=== PATIENT | male | born 1945 | race Caucasian/White ===

== ENCOUNTER 2019-09-01 07:01 | Outpatient (CLI) | payer MEDICARE, SELFPAY ==
[2019-09-01 07:20] LABS: Basophils Absolute Auto 0.05 K/mm3 (0.00-0.10); Basophils Percent Auto 0.8 % (0.0-1.0); Eosinophils Absolute Auto 0.49 K/mm3 (0.02-0.50); Eosinophils Percent Auto 8.2 % (1.0-6.0); Immature Granulocyte Absolute 0.01 K/mm3 (0.00-0.00); Immature Granulocyte Percent A 0.2 % (0.0-0.0); Lymphocytes Absolute Auto 2.38 K/mm3 (1.10-4.50); Lymphocytes Percent Auto 39.7 % (18.0-42.0); Mean Corpuscular HGB Conc 33.3 g/dL (32.0-36.0); Mean Corpuscular Hemoglobin 30.7 pg (27.0-31.0); Mean Platelet Volume 9.8 fl (8.7-11.0); Monocytes Absolute Auto 0.55 K/mm3 (0.10-0.90); Monocytes Percent Auto 9.2 % (2.0-11.0); Neutrophils Absolute Auto 2.5 K/mm3 (1.7-7.2); Neutrophils Percent Auto 41.9 % (50.0-70.0); Platelet Count Result 177 K/mm3 (150-420); Red Blood Count 4.24 M/mm3 (4.70-6.10); Red Cell Distribution Width 12.1 % (11.6-14.4)
[2019-09-01 07:34] LABS: Hemoglobin A1C 6.6 % (<5.7)
[2019-09-01 09:04] LABS: Alanine Aminotransferase 26 U/L (16-63); Alkaline Phosphatase 50 U/L (46-116); Anion Gap 11.4 mmol/L (7-16); Aspartate Amino Transferase 22 U/L (15-37); Bilirubin,Total 0.6 mg/dL (0.00-1.00); Blood Urea Nitrogen 27 mg/dL (7-18); Calcium 8.6 mg/dL (8.5-10.1); Carbon Dioxide 29 mmol/L (21-32); Chloride 107 mmol/L (98-108); Cholesterol 180 mg/dL (0-200); Estimated Glomerular Filt Rate > 60; Glucose 110 mg/dL (70-99); HDL Direct 53 mg/dL (40-60); LDL Cholesterol Calculated 103 mg/dL (<130); Osmolality Calculated 302 mOsm/kg (285-295); Potassium 4.4 mmol/L (3.5-5.1); Sodium 143 mmol/L (136-145); Total Protein 6.7 g/dL (6.4-8.2); Triglycerides 119 mg/dL (0-150)
== END 2019-09-01 07:02 | disposition home or self-care (01) ==
PROVIDERS: PCP Family Medicine; Visit Provider Family Medicine
DX: E78.2 Mixed hyperlipidemia (principal); I10 Essential (primary) hypertension; R73.03 Prediabetes
CPT/HCPCS: 36415; 80053; 80061; 83036; 85025

== ENCOUNTER 2020-03-06 06:56 | Outpatient (CLI) | payer MEDICARE, SELFPAY ==
[2020-03-06 07:54] LABS: Hemoglobin A1C 6.7 % (<5.7)
[2020-03-06 09:52] LABS: Alanine Aminotransferase 23 U/L (16-63); Albumin Level 3.6 g/dL (3.4-5.0); Alkaline Phosphatase 62 U/L (46-116); Anion Gap 7 mmol/L (8-16); Aspartate Amino Transferase 23 U/L (15-37); Bilirubin,Total 0.7 mg/dL (0.00-1.00); Blood Urea Nitrogen 20 mg/dL (7-18); Carbon Dioxide 29 mmol/L (21-32); Chloride 103 mmol/L (98-108); Cholesterol 175 mg/dL (0-200); Estimated Glomerular Filt Rate > 60; Glucose 104 mg/dL (70-99); HDL Direct 49 mg/dL (40-60); LDL Cholesterol Calculated 107 mg/dL (<130); Osmolality Calculated 290 mOsm/kg (285-295); Potassium 4.3 mmol/L (3.5-5.1); Sodium 139 mmol/L (136-145); Total Protein 6.9 g/dL (6.4-8.2); Triglycerides 97 mg/dL (0-150)
== END 2020-03-06 06:57 | disposition home or self-care (01) ==
LOC: CHSLAB 06:58
PROVIDERS: PCP Internal Medicine; Visit Provider Internal Medicine
DX: E78.5 Hyperlipidemia, unspecified (principal); I10 Essential (primary) hypertension; R73.03 Prediabetes
CPT/HCPCS: 36415; 80053; 80061; 83036

== ENCOUNTER 2020-09-16 07:16 | Outpatient (CLI) | payer MEDICARE, SELFPAY ==
[2020-09-16 07:35] LABS: Basophils Absolute Auto 0.06 K/mm3 (0.00-0.10); Basophils Percent Auto 0.8 % (0.0-1.0); Eosinophils Absolute Auto 0.38 K/mm3 (0.02-0.50); Eosinophils Percent Auto 5.3 % (1.0-6.0); Hematocrit 37.6 % (37.0-46.0); Hemoglobin 12.4 g/dL (12.4-15.3); Immature Granulocyte Absolute 0.03 K/mm3 (0.00-0.00); Immature Granulocyte Percent A 0.4 % (0.0-0.0); Lymphocytes Absolute Auto 2.87 K/mm3 (1.10-4.50); Lymphocytes Percent Auto 40.2 % (18.0-42.0); Mean Platelet Volume 9.9 fl (8.7-11.0); Monocytes Absolute Auto 0.65 K/mm3 (0.10-0.90); Monocytes Percent Auto 9.1 % (2.0-11.0); Neutrophils Absolute Auto 3.2 K/mm3 (1.7-7.2); Neutrophils Percent Auto 44.2 % (50.0-70.0); Platelet Count Result 208 K/mm3 (150-420); Red Cell Distribution Width 11.9 % (11.6-14.4); White Blood Count 7.1 K/mm3 (4.8-10.8)
[2020-09-16 07:42] LABS: Appearance Urine Clear (Clear); Bilirubin Urine Negative (Negative); Color Urine Yellow (Yellow); Glucose Urine UA Negative (Negative); Ketones Urine Negative (Negative); Leukocyte Esterase Ur 1+ (Negative); Nitrate Urine Negative (Negative); Protein Urine Negative (Negative); Specific Grav Ur >= 1.030 (1.010-1.020); Urobilinogen Urine 0.2 mg/dL (0.2-1.0)
[2020-09-16 07:47] LABS: Add Urine Microscopic? YES; Blood Urine Trace (Negative); RBC Urine 0-2 /hpf (0-2); WBC Urine 0-3 /hpf (0-3)
[2020-09-16 07:48] LABS: Bacteria Urine Trace /hpf
[2020-09-16 08:37] LABS: Alanine Aminotransferase 26 U/L (16-63); Albumin Level 3.8 g/dL (3.4-5.0); Alkaline Phosphatase 62 U/L (46-116); Anion Gap 7 mmol/L (8-16); Aspartate Amino Transferase 18 U/L (15-37); Bilirubin,Total 0.4 mg/dL (0.00-1.00); Blood Urea Nitrogen 26 mg/dL (7-18); Carbon Dioxide 30 mmol/L (21-32); Chloride 103 mmol/L (98-108); Cholesterol 159 mg/dL (0-200); Estimated Glomerular Filt Rate 57; Glucose 105 mg/dL (70-99); HDL Direct 47 mg/dL (40-60); LDL Cholesterol Calculated 94 mg/dL (<130); Osmolality Calculated 294 mOsm/kg (285-295); Potassium 4.3 mmol/L (3.5-5.1); Prostate Specific Antigen 9.1 ng/mL (< OR = 4.0); Sodium 140 mmol/L (136-145); Thyroid Stimulating Hormone 3.18 uIU/mL (0.36-3.74); Total Protein 6.8 g/dL (6.4-8.2); Triglycerides 92 mg/dL (0-150)
== END 2020-09-16 07:17 | disposition home or self-care (01) ==
LOC: CHSLAB 07:18
PROVIDERS: PCP Internal Medicine; Visit Provider Internal Medicine
DX: E78.5 Hyperlipidemia, unspecified (principal); I10 Essential (primary) hypertension; Z00.00 Encounter for general adult medical examination without abnormal findings; Z12.5 Encounter for screening for malignant neoplasm of prostate
CPT/HCPCS: 36415; 80053; 80061; 81001; 84153; 84443; 85025; G0103

== ENCOUNTER 2020-12-02 17:01 | Emergency (ER) | payer MEDICARE, OTHER, SELFPAY ==
--- NOTE | 2020-12-02 17:46 | ED.MALEGU ---
HPI - Male Genitourinary General Chief complaint: Urogenital-Male Stated complaint: Can not urinate Time Seen by Provider: 12/02/20 17:46 Source: patient Mode of arrival: ambulatory Limitations: no limitations History of Present Illness HPI Narrative: 75-year-old man comes in today complaining of difficulty urinating. Patient states that on the he underwent your cystoscopy for bladder stone and a prostate biopsy. He states he got his catheter taken out on Friday the and for a few days he had small stream and dribbling but he has only had a few drops with each attempt to urinate for the last day or 2. States he feels like his bladder is full, has low abdominal pain. He states he has had a small amount of blood at the initiation of urinating several times since the urinary catheter was removed but no persistent blood. He denies nausea, vomiting, fever, night sweats, testicular pain or swelling, chills and dysuria. Onset (ago): day(s) (2) Duration: constant Location: penis and abdomen Severity: moderate Quality: sharp Relieving factors: urination Exacerbating factors: palpation Context: other ( recent procedure) Associated symptoms: Reports blood in urine Related Data Home Medications Medication Instructions Recorded Confirmed lisinopril-hydrochlorothiazide 1 tablet PO DAILY 12/02/20 12/02/20 Allergies Allergy/AdvReac Type Severity Reaction Status Date / Time Penicillins Allergy Severe Swelling Verified 12/02/20 18:30 Review of Systems Review of Systems: All systems reviewed & are unremarkable except as noted in HPI and below Constitutional: Constitutional: Denies chills and Denies fever(s) Cardiovascular: Cardiovascular: Denies chest pain and Denies radiating jaw, neck or arm pain Respiratory: Respiratory: Denies cough and Denies dyspnea Gastrointestinal: Gastrointestinal: Reports abdominal pain, Denies nausea and Denies vomiting Genitourinary: Genitourinary: Reports hematuria, Reports oliguria, Denies dysuria and Reports urinary frequency Musculoskeletal: Musculoskeletal: Denies back pain, Denies arthralgias and Denies joint swelling Integumentary/Breasts: Skin/Breast: Denies pruritus, Denies erythema and Denies rash Neurologic: Denies vertigo, Denies dizziness and Denies syncope Hematologic/Lymphatic: Hematologic/Lymphatic: Denies easy bleeding and Denies easy bruising Allergic/Immunologic: Allergic/Immunologic: Denies lip swelling and Denies tongue swelling PMFSH Past Medical History Medical History (Updated 12/02/20 @ 18:30 by Nabeel Henao MD) Bladder stone Elevated PSA Surgical History Surgical History (Updated 12/02/20 @ 18:25 by Nabeel Henao MD) H/O cystoscopy Social History Social History (Updated 12/02/20 @ 18:25 by Nabeel Henao MD) Smoking status: Never smoker Substance use: never Living arrangements: with family Gender identity (if verbalized by the patient): Male Exam Const: General: alert Orientation/consciousness: patient oriented x3 Limitations: no limitations Other: mild acute distress Eyes: Conjunctivae: conjunctivae normal Pupils: Equal, round and reactive pupils present EOM: EOMs intact bilaterally Resp: Effort & Inspection: normal respiratory effort and not labored Auscultation: clear to auscultation bilaterally, no rales, no rhonchi and no wheezes Cardio: Rate: regular rate Rhythm: regular rhythm Heart sounds: no murmurs GI: GI Palp: Yes Soft to palpation, Yes Tenderness to palpation present (GI) ( mild suprapubic tenderness is with a distended bladder.) and No Guarding due to palpation present (GI) Auscultation: normal bowel sounds : Male General Exam: Yes normal external exam Other: No scrotal swelling or tenderness. No inguinal masses. Skin: General skin exam: normal color, no jaundice and no pallor Rashes: no rashes Neuro: General: patient oriented x3, moves all extremities and no focal motor deficits
[2020-12-02 18:04] LABS: Basophils Absolute Auto 0.04 K/mm3 (0.00-0.10); Basophils Percent Auto 0.4 % (0.0-1.0); Eosinophils Absolute Auto 0.15 K/mm3 (0.02-0.50); Eosinophils Percent Auto 1.6 % (1.0-6.0); Hematocrit 35.3 % (37.0-46.0); Hemoglobin 11.7 g/dL (12.4-15.3); Immature Granulocyte Absolute 0.05 K/mm3 (0.00-0.00); Immature Granulocyte Percent A 0.5 % (0.0-0.0); Lymphocytes Absolute Auto 1.84 K/mm3 (1.10-4.50); Lymphocytes Percent Auto 19.8 % (18.0-42.0); Mean Corpuscular HGB Conc 33.1 g/dL (32.0-36.0); Mean Corpuscular Hemoglobin 30.4 pg (27.0-31.0); Mean Corpuscular Volume 91.7 fL (78.0-102.0); Mean Platelet Volume 9.5 fl (8.7-11.0); Monocytes Absolute Auto 0.83 K/mm3 (0.10-0.90); Neutrophils Absolute Auto 6.4 K/mm3 (1.7-7.2); Neutrophils Percent Auto 68.7 % (50.0-70.0); Platelet Count Result 248 K/mm3 (150-420); Red Blood Count 3.85 M/mm3 (4.70-6.10); Red Cell Distribution Width 11.9 % (11.6-14.4); White Blood Count 9.3 K/mm3 (4.8-10.8)
[2020-12-02 18:06] LABS: Add Urine Microscopic? YES; Appearance Urine Cloudy (Clear); Bilirubin Urine Negative (Negative); Blood Urine 3+ (Negative); Color Urine Yellow (Yellow); Glucose Urine UA Negative (Negative); Ketones Urine Negative (Negative); Leukocyte Esterase Ur 1+ (Negative); Nitrate Urine Negative (Negative); Protein Urine 2+ (Negative); Urobilinogen Urine 0.2 mg/dL (0.2-1.0); pH Urine 6.5 (5.0-8.0)
[2020-12-02 18:16] LABS: Bacteria Urine Trace /hpf; RBC Urine >75 /hpf (0-2); Squamous Epithelial Cell Urine Rare /hpf (Few); WBC Urine 21-30 /hpf (0-3)
[2020-12-02 18:18] LABS: Alanine Aminotransferase 23 U/L (16-63); Albumin Level 3.5 g/dL (3.4-5.0); Alkaline Phosphatase 62 U/L (46-116); Anion Gap 7 mmol/L (8-16); Aspartate Amino Transferase 17 U/L (15-37); Bilirubin,Total 0.7 mg/dL (0.00-1.00); Blood Urea Nitrogen 24 mg/dL (7-18); Calcium 9.4 mg/dL (8.5-10.1); Carbon Dioxide 29 mmol/L (21-32); Chloride 97 mmol/L (98-108); Estimated Glomerular Filt Rate 53; Glucose 117 mg/dL (70-99); Osmolality Calculated 281 mOsm/kg (285-295); Potassium 3.9 mmol/L (3.5-5.1); Sodium 133 mmol/L (136-145); Total Protein 7.1 g/dL (6.4-8.2)
[2020-12-02 18:58] VITALS: BP 154/72; PULSE 60; RESP 20; TEMP 36.4; O2SAT 96
[2020-12-02 19:19] VITALS: BP 144/71; PULSE 58; RESP 20; TEMP 36.7; O2SAT 96
== END 2020-12-02 19:22 | disposition home or self-care (01) ==
PROVIDERS: Emergency Provider Emergency Medicine; PCP Internal Medicine
DX: R33.9 Retention of urine, unspecified (principal)
CPT/HCPCS: 36415; 80053; 81001; 85025; 87086; 99283

== ENCOUNTER 2021-05-24 07:17 | Outpatient (CLI) | payer MEDICARE, SELFPAY ==
[2021-05-24 07:32] LABS: Basophils Absolute Auto 0.06 K/mm3 (0.00-0.10); Basophils Percent Auto 0.8 % (0.0-1.0); Eosinophils Absolute Auto 0.32 K/mm3 (0.02-0.50); Eosinophils Percent Auto 4.3 % (1.0-6.0); Hematocrit 40.3 % (37.0-46.0); Hemoglobin 13.1 g/dL (12.4-15.3); Immature Granulocyte Absolute 0.02 K/mm3 (0.00-0.00); Immature Granulocyte Percent A 0.3 % (0.0-0.0); Lymphocytes Absolute Auto 3.01 K/mm3 (1.10-4.50); Lymphocytes Percent Auto 40.8 % (18.0-42.0); Mean Corpuscular HGB Conc 32.5 g/dL (32.0-36.0); Mean Corpuscular Hemoglobin 30.6 pg (27.0-31.0); Mean Corpuscular Volume 94.2 fL (78.0-102.0); Mean Platelet Volume 9.6 fl (8.7-11.0); Monocytes Absolute Auto 0.68 K/mm3 (0.10-0.90); Monocytes Percent Auto 9.2 % (2.0-11.0); Neutrophils Absolute Auto 3.3 K/mm3 (1.7-7.2); Neutrophils Percent Auto 44.6 % (50.0-70.0); Platelet Count Result 196 K/mm3 (150-420); Red Blood Count 4.28 M/mm3 (4.70-6.10); Red Cell Distribution Width 11.9 % (11.6-14.4); White Blood Count 7.4 K/mm3 (4.8-10.8)
[2021-05-24 07:43] LABS: Hemoglobin A1C 6.3 % (<5.7)
[2021-05-24 09:04] LABS: Alanine Aminotransferase 29 U/L (16-63); Albumin Level 3.7 g/dL (3.4-5.0); Alkaline Phosphatase 63 U/L (46-116); Anion Gap 6 mmol/L (8-16); Aspartate Amino Transferase 23 U/L (15-37); Bilirubin,Total 0.6 mg/dL (0.00-1.00); Blood Urea Nitrogen 27 mg/dL (7-18); Calcium 9.3 mg/dL (8.5-10.1); Carbon Dioxide 30 mmol/L (21-32); Chloride 104 mmol/L (98-108); Cholesterol 180 mg/dL (0-200); Estimated Glomerular Filt Rate 60; Glucose 111 mg/dL (70-99); HDL Direct 55 mg/dL (40-60); LDL Cholesterol Calculated 105 mg/dL (<130); Osmolality Calculated 296 mOsm/kg (285-295); Potassium 4.3 mmol/L (3.5-5.1); Sodium 140 mmol/L (136-145); Total Protein 6.7 g/dL (6.4-8.2); Triglycerides 98 mg/dL (0-150)
== END 2021-05-24 07:18 | disposition home or self-care (01) ==
LOC: CHSLAB 07:24
PROVIDERS: PCP Internal Medicine; Visit Provider Internal Medicine
DX: E78.5 Hyperlipidemia, unspecified (principal); I10 Essential (primary) hypertension; R73.03 Prediabetes
CPT/HCPCS: 36415; 80053; 80061; 83036; 85025

== ENCOUNTER 2021-06-04 13:20 | Outpatient (CLI) | payer MEDICARE, SELFPAY ==
--- NOTE | ~2021-06-04 | US_ITS ---
EXAMINATION: US carotid duplex BI EXAM DATE: 06/04/2021 13:43 INDICATION: Carotid bruits TECHNIQUE: Grayscale, color and pulsed Doppler images of the cervical carotid arteries were obtained . The degree of vessel stenosis is placed in one of the following categories: normal, <50% stenosis, 50-69% stenosis, >=70% stenosis but less than near-occlusion, near-occlusion, or occlusion. Note that percent stenosis relative to normal distal artery lumen diameter is indirectly measured from velocit y measurements as described by Huy, et al. Radiology 2003; 229:340-346. There is no prior study fo r comparison. FINDINGS: RIGHT SIDE: Right common carotid artery peak systolic velocity (PSV in cm/s): 102 Right bulb/internal carotid artery peak systolic velocity (PSV in cm/s): 107 Right internal carotid artery end diastolic velocity (EDV in cm/s): 31 Right ICA/CCA peak systolic ratio: 1.1 Right external carotid artery peak systolic velocity (PSV in cm/s): 91 Right vertebral artery antegrade flow: yes There is no focal plaque identified. LEFT SIDE: Left common carotid artery peak systolic velocity (PSV in cm/s): 103 Left bulb/internal carotid artery peak systolic velocity (PSV in cm/s): 81 Left internal carotid artery end diastolic velocity (EDV in cm/s): 23 Left ICA/CCA peak systolic ratio: 0.8 Left external carotid artery peak systolic velocity (PSV in cm/s): 76 Left vertebral artery antegrade flow: yes There is minimal carotid bulb plaque. Velocity and Doppler waveforms in the common and internal carotid arteries is normal. IMPRESSION: 1. Normal right internal carotid artery. 2. Less than 50% stenosis left internal carotid artery. Reviewed, dictated and finalized at location A. RDS MANAGEMENT DIRECTOR
--- NOTE | ~2021-06-04 | XR_ITS ---
EXAMINATION: XR chest 2V EXAM DATE: 06/04/2021 13:47 INDICATION: Dyspnea with exertion several times months . TECHNIQUE: Frontal and lateral projections of the chest obtained and reviewed. There is no prior savanna dy for comparison. FINDINGS: On lateral projection there is increased approximately 2 cm region of density anterior mid lung zone, possible left upper lobe anterior segmental nodule or mass. There is small right lung gra nuloma. No confluent consolidation, pneumothorax or pleural effusion suspected. Cardiomediastinal diya houette is normal. Mild to moderate thoracic spondylosis. IMPRESSION: Indeterminate left perihilar density; recommend chest CT without contrast for further ev aluation. I called this finding, recommendation with Sammie working with Dr. Jose De Jesus Covarrubias MD, said she look f or this report. Reviewed, dictated and finalized at location A. RAL TELLER IMPRESSION: Indeterminate left perihilar density; recommend chest CT without c ontrast for further evaluation. I called this finding, recommendation with Sammie working with Dr. Jose De Jesus gifford MD, said she look for this report.
== END 2021-06-04 13:21 | disposition home or self-care (01) ==
LOC: CHSIMG 13:22
PROVIDERS: PCP Internal Medicine; Visit Provider Internal Medicine
DX: R06.00 Dyspnea, unspecified (principal); R09.89 Other specified symptoms and signs involving the circulatory and respiratory systems
CPT/HCPCS: 71046; 93880

== ENCOUNTER 2021-06-05 09:11 | Outpatient (CLI) | payer MEDICARE, SELFPAY ==
--- NOTE | ~2021-06-05 | CT_ITS ---
EXAMINATION:CT diagnostic chest w con DATE: 06/05/2021 11:40 INDICATION: Abnormal chest radiograph. Shortness of breath with exertion. TECHNIQUE: Computed tomography (CT) of the chest was performed with 75 mL Omnipaque 350 intravenous c ontrast. Automated exposure control and iterative reconstruction technique were employed. The dose-le ngth product (DLP) was 212.05 mGy-cm. COMPARISON: Chest 2 views 06/04/2021, chest CT 11/12/2013 FINDINGS: There is mild scarring at the lung apices. There is a 7 mm nodule in right lower lobe, stab le from 11/12/2013. No pleural effusion. The heart size is normal. There are coronary artery calcificat ions. No pericardial effusion. There is severe cervical and thoracic spondylosis. There is thoracic k yphosis and mild chronic anterior wedging of multiple thoracic vertebral bodies. IMPRESSION: 1. No abnormal correlate for the chest radiograph finding. 2. Stable mild scarring at the lung apices. Reviewed, dictated and finalized at location B. M SHOVELMAN
== END 2021-06-05 09:12 | disposition home or self-care (01) ==
PROVIDERS: PCP Internal Medicine; Visit Provider Internal Medicine
DX: R06.00 Dyspnea, unspecified (principal); R09.89 Other specified symptoms and signs involving the circulatory and respiratory systems; R91.8 Other nonspecific abnormal finding of lung field
CPT/HCPCS: 71260; 94060; 94726; 94729; Q9967

== ENCOUNTER 2024-07-05 11:46 | Inpatient (IN) | payer MEDICARE, SELFPAY ==
[2024-07-05] VITALS (27 sets, daily range): BP systolic 106–144; BP diastolic 54–90; PULSE 70–119; RESP 14–31; TEMP 36–36.7; O2SAT 83–99; BMI 24.2
--- NOTE | ~2024-07-05 | CT_ITS ---
EXAMINATION: CTA chest PE protocol DATE: 07/05/2024 13:06 INDICATION: Cough, dyspnea on exertion, less appetite. COPD. TECHNIQUE: Computed tomography (CT) pulmonary angiogram of the chest was performed with 100 mL Omnipa que-350 intravenous contrast. Additional 3D reconstructions utilizing coronal maximum intensity proje ction (MIP) were performed. Automated exposure control and iterative reconstruction technique were em ployed. The dose-length product was 231.77 mGy-cm. COMPARISON: 06/05/21 FINDINGS: No pulmonary embolism. Mild emphysema. Scattered tree-in-bud opacities in both lungs consistent with bronchiolitis with endobronchial spread of disease. Calcified right upper lobe nodule consistent wit h old granulomatous disease. Unchanged 9 x 5 mm right lower lobe nodule with a couple punctate qa intern al calcification is also likely sequela of old granulomatous disease. No pulmonary edema, pleural eff usion or pneumothorax. Heart size is normal. Atherosclerotic coronary artery calcifications. No peric ardial effusion. Thoracic aorta is normal in caliber with no dissection. No pathologically enlarged t horacic lymphadenopathy. Visualized upper abdomen is unremarkable. Severe thoracic spondylosis. IMPRESSION: 1. No pulmonary embolism. 2. Mild emphysema with scattered subtle tree-in-bud opacities which could be due to acute infectious bronchiolitis or more chronic respiratory bronchiolitis interstitial lung disease, new since prior [facility]. Reviewed, dictated and finalized at location B. ICAL SCIENTIST IMPRESSION: 1. No pulmonary embolism. 2. Mild emphysema with scattered subtle tree-in-bud opacities which could be du e to acute infectious bronchiolitis or more chronic respiratory bronchiolitis i nterstitial lung disease, new since prior study.
--- NOTE | 2024-07-05 11:48 | ECG_ITS ---
Test Date: 2024-07-05 12:08:21 Measurements Intervals [place] Rate: 100 P: 71 IA: 166 QRS: 78 QRSD: 86 T: 78 QT: 327 QTc: 422 Interpretive Statements SINUS TACHYCARDIA ABNORMAL RHYTHM ECG No previous ECG available for comparison Electronically Signed On 07-06-2024 15:21:29 EXCAVATOR OPERATOR by Mercy Gaston M.D.
--- NOTE | 2024-07-05 11:51 | ED_ITS ---
HPI - General Adult General Chief complaint: Shortness of Breath/Dyspnea Stated complaint: shortness of breathe Time Seen by Provider: 07/05/24 11:48 History of Present Illness HPI narrative: Deonte is an 78M with a PMH of COPD/emphysema that was brought to the ED with worsening chest dyspnea, cough and fatigue. pulse ox dropped to 81% at home. No CP or syncope. He was exposed to covid several days prior. Related Data Home Medications ?Medication ?Instructions ?Recorded ?Confirmed ?Last Taken ?Type lisinopril 20 1 tablet PO DAILY 12/02/20 07/05/24 12/02/20 History mg-hydrochlorothiazide 25 mg tablet fluticasone propionate 115 2 puff inhalation Q12H 07/05/24 07/05/24 Unknown History mcg-salmeterol 21 mcg/actuation HFA inhaler (Advair HFA) latanoprost 0.005 % eye drops 1 drp EACH EYE QPM 07/05/24 07/05/24 Unknown History pravastatin 40 mg tablet 40 mg PO QHS 07/05/24 07/05/24 Unknown History Allergies Allergy/AdvReac Type Severity Reaction Status Date / Time Penicillins Allergy Severe Swelling Verified 07/05/24 11:49 Review of Systems 2 Review of Systems: All systems reviewed & are unremarkable except as noted in HPI and below PMFSH Past Medical History Medical History (Updated 07/05/24 @ 13:40 by Nigel Ponce DO) Bladder stone Elevated PSA Surgical History Surgical History (Updated 12/02/20 @ 18:25 by Nabeel HenaoMD) H/O cystoscopy Social History Social History (Updated 12/02/20 @ 18:25 by Nabeel HenaoMD) Smoking status: Unknown if ever smoked Second hand tobacco smoke exposure: No Alcohol intake: never Substance use: never Substance use type: does not use Do You Feel Safe in your Home?: Yes Lack of Transportation: No Lack of Food: Never True Current Housing: I Have Housing Concerned About Future Housing: No Difficulty Paying Gas/Electric Bills: No Difficulty Paying for Meds: No Currently Unemployed: No Education: High School Diploma/GED Difficulty w/ Childcare or Family Care: No Living arrangements: with family Gender identity (if verbalized by the patient): Male Spiritual care concerns: No Exam 2 Const: General: cooperative, healthy appearing, comfortable, no acute distress, well developed, alert, awake and Physically active O rientation/consciousness: oriented to person, oriented to place and oriented to time HENMT: Head: normal to inspection, normocephalic and atraumatic Ears: h earing grossly normal bilaterally and external ears normal Face/Nose/Sinus: N ormal external nose present Eyes: General: appearance normal, both eyes and all related structures P eriorbital: periorbital findings normal Sclera: sclerae normal Pupils: E qual, round and reactive pupils present Neck: Neck: normal visual inspection Chest: Chest palpation & inspection: normal inspection of the chest Resp: Effort & Inspection: normal respiratory effort, able to speak in complete sentences and no respiratory distress Other: Diffuse wheezing with poor air flow. Crackles in the bases bilaterally, R>L Cardio: Jugular venous distension: no JVD Rate: regular rate Rhythm: r egular rhythm GI: Inspection: normal to inspection GI Palp: Yes Soft to palpation A uscultation: normal bowel sounds Skin: General skin exam: normal color and no rashes or lesions noted Neuro: General: oriented to person, oriented to place and oriented to time Cranial nerves: Yes Equal, round and reactive pupils present Extrem: General: normal to inspection Course Course Emergency Course: Ordered labs, EKG, CTA and duoneb as well as steroids and abx EKG showed sinus tachycardia with a rate of 100, normal axis and no ST elevation/depression EXAMINATION: CTA chest PE protocol DATE: 07/05/2024 13:06 INDICATION: Cough, dyspnea on exertion, less appetite. COPD. TECHNIQUE: Computed tomography (CT) pulmonary angiogram of the chest was performed with 100 mL Omnipaque-350 intravenous contrast. Additional 3D reconstructions utilizing coronal maximum intensity projection (MIP) were performed. Automated exposure control and iterative reconstruction technique were employed. The dose-length product was 231.77 mGy-cm. COMPARISON: 06/05/21 FINDINGS: No pulmonary embolism. Mild emphysema. Scattered tree-in-bud opacities in both lungs consistent with bronchiolitis with endobronchial spread of disease. Calcified right upper lobe nodule consistent with old granulomatous disease. Unchanged 9 x 5 mm right lower lobe nodule with a couple punctate internal calcification is also likely sequela of old granulomatous disease. No pulmonary edema, pleural effusion or pneumothorax. Heart size is normal. Atherosclerotic coronary artery calcifications. No pericardial effusion. Thoracic aorta is normal in caliber with no dissection. No pathologically enlarged thoracic lymphadenopathy. Visualized upper abdomen is unremarkable. Severe thoracic spondylosis. IMPRESSION: 1. No pulmonary embolism. 2. Mild emphysema with scattered subtle tree-in-bud opacities which could be due to acute infectious bronchiolitis or more chronic respiratory bronchiolitis interstitial lung disease, new since prior study. I spoke with the hospitalist Natalee, who accepted the patient for admission. Vital Signs Vital signs: Vital Signs Pulse Rate 119 H 07/05/24 11:45 Pulse Oximetry 90 07/05/24 11:45 Oxygen Delivery Room Air 07/05/24 11:45 Temperature 97.8 F 07/05/24 15:02 Pulse Rate 107 H 07/05/24 15:07 Respiratory Rate 14 07/05/24 15:07 Blood Pressure 144/75 H 07/05/24 15:02 Pulse Oximetry 91 07/05/24 15:07 Oxygen Delivery Nasal Cannula 07/05/24 15:07 Oxygen Flow Rate 2 07/05/24 15:07 Medical Decision Making Vital Signs Vital Signs: Vital Signs Pulse Rate 119 H 07/05/24 11:45 Pulse Oximetry 90 07/05/24 11:45 Oxygen Delivery Room Air 07/05/24 11:45 Temperature 97.8 F 07/05/24 15:02 Pulse Rate 107 H 07/05/24 15:07 Respiratory Rate 14 07/05/24 15:07 Blood Pressure 144/75 H 07/05/24 15:02 Pulse Oximetry 91 07/05/24 15:07 Oxygen Delivery Nasal Cannula 07/05/24 15:07 Oxygen Flow Rate 2 07/05/24 15:07 Lab Data 07/05/24 12:09 07/05/24 12:09 Labs: Lab Results 07/05/24 07/05/24 Range/Units 11:50 12:09 WBC 12.5 H (4.8-10.8) K/mm3 RBC 4.01 L (4.70-6.10) M/mm3 Hgb 12.4 (12.4-15.3) g/dL Hct 37.1 (37.0-46.0) % MCV 92.5 (78.0-102.0) fL MCH 30.9 (27.0-31.0) pg MCHC 33.4 (32-36) g/dL RDW 11.9 (11.6-14.4) % Plt Count 200 (150-420) K/mm3 MPV 9.7 (8.7-11.0) fl Immature Gran % (Auto) 0.6 H (0.0-0.0) % Neut % (Auto) 80.9 H (50.0-70.0) % Lymph % (Auto) 10.7 L (18.0-42.0) % [place] % (Auto) 7.3 (2.0-11.0) % Eos % (Auto) 0.3 L (1.0-6.0) % Baso % (Auto) 0.2 (0.0-1.0) % Lymph # (Auto) 1.34 (1.10-4.50) K/mm3 [place] # (Auto) 0.91 H (0.10-0.90) K/mm3 Eos # (Auto) 0.04 (0.02-0.50) K/mm3 Baso # (Auto) 0.02 (0.00-0.10) K/mm3 Abs Immat Gran (auto) 0.07 H (0.00-0.00) K/mm3 Absolute Neuts (auto) 10.12 H (1.70-7.20) K/mm3 Absolute Nucleated RBC 0.00 (0.00-0.00) K/mm3 Nucleated RBC % 0.0 (0-0.0) % PT 10.9 (9.50-12.1) Seconds INR 1.0 Sodium 139 (136-145) mmol/L Potassium 4.4 (3.5-5.1) mmol/L Chloride 100 (98-108) mmol/L Carbon Dioxide 29 (21-32) mmol/L Anion Gap 10 (4-12) mmol/L BUN 39 H (7-18) mg/dL Creatinine 1.38 H (0.70-1.30) mg/dL Estim Creat Clear Calc 35 ml/min Estimated GFR 50 L (59 - ) Glucose 140 H (70-99) mg/dL Calculated Osmolality 299 H (285-295) mOsm/kg Lactic Acid 1.0 (0.4-2.0) mmol/L Calcium 9.3 (8.5-10.1) mg/dL Total Bilirubin 0.7 (0.00-1.00) mg/dL AST 15 (15-37) U/L ALT 21 (16-63) U/L Alkaline Phosphatase 58 (46-116) U/L Troponin I 9.6 (0.00-60.4) ng/L NT-Pro-B Natriuret Pep 413 (0-450) pg/mL Total Protein 7.2 (6.4-8.2) g/dL Albumin 3.6 (3.4-5.0) g/dL Influenza A (RT-PCR) Negative (Negative) Influenza B (RT-PCR) Negative (Negative) RSV (RT-PCR) Negative (Negative) SARS-CoV-2 RNA (RT-PCR) Negative (Negative) Discharge Plan Discharge Clinical Impression: Acute and chronic respiratory failure with hypoxia Patient Disposition: Acute Care Hospital Condition: Serious
[2024-07-05] MEDS: IPRATROPIUM 0.5 MG/ALBUTEROL SULFATE 2.5 MG AMPUL.NEB 3 ML INHALATION ×2 (11:56→17:58)
[2024-07-05] MEDS: methylPREDNISolone SOD SUCC 125 MG VIAL IV PUSH (12:15)
--- NOTE | 2024-07-05 12:15 | PC.NURSE ---
Covid culture sent to lab
[2024-07-05] MEDS: levoFLOXacin 750 MG/D5W 150 ML 750 MG/150 ML BAG 100 MG IVPB (12:17)
[2024-07-05 12:26] LABS: Basophils Absolute Auto 0.02 K/mm3 (0.00-0.10); Basophils Percent Auto 0.2 % (0.0-1.0); Eosinophils Absolute Auto 0.04 K/mm3 (0.02-0.50); Eosinophils Percent Auto 0.3 % (1.0-6.0); Hematocrit 37.1 % (37.0-46.0); Hemoglobin 12.4 g/dL (12.4-15.3); Immature Granulocyte Absolute 0.07 K/mm3 (0.00-0.00); Immature Granulocyte Percent A 0.6 % (0.0-0.0); Lymphocytes Absolute Auto 1.34 K/mm3 (1.10-4.50); Lymphocytes Percent Auto 10.7 % (18.0-42.0); Mean Corpuscular HGB Conc 33.4 g/dL (32-36); Mean Corpuscular Hemoglobin 30.9 pg (27.0-31.0); Mean Corpuscular Volume 92.5 fL (78.0-102.0); Mean Platelet Volume 9.7 fl (8.7-11.0); Monocytes Absolute Auto 0.91 K/mm3 (0.10-0.90); Monocytes Percent Auto 7.3 % (2.0-11.0); Neutrophils Absolute Auto 10.12 K/mm3 (1.70-7.20); Neutrophils Percent Auto 80.9 % (50.0-70.0); Platelet Count Result 200 K/mm3 (150-420); Red Blood Count 4.01 M/mm3 (4.70-6.10); Red Cell Distribution Width 11.9 % (11.6-14.4); White Blood Count 12.5 K/mm3 (4.8-10.8)
[2024-07-05 12:38] LABS: SARS-CoV-2 RNA PCR Negative (Negative)
[2024-07-05 12:38] LABS: Prothrombin Time 10.9 Seconds (9.50-12.1)
[2024-07-05 12:39] LABS: Influenza A QL RT-PCR Negative (Negative); Influenza B QL RT-PCR Negative (Negative); RSV RNA, RT-PCR Negative (Negative)
[2024-07-05 12:42] LABS: Anion Gap 10 mmol/L (4-12); Blood Urea Nitrogen 39 mg/dL (7-18); Calcium 9.3 mg/dL (8.5-10.1); Carbon Dioxide 29 mmol/L (21-32); Chloride 100 mmol/L (98-108); Estimated CRCL calculation 35 ml/min; Estimated Glomerular Filt Rate 50; Glucose 140 mg/dL (70-99); Osmolality Calculated 299 mOsm/kg (285-295); Potassium 4.4 mmol/L (3.5-5.1); Sodium 139 mmol/L (136-145)
[2024-07-05 12:43] LABS: Alanine Aminotransferase 21 U/L (16-63); Albumin Level 3.6 g/dL (3.4-5.0); Alkaline Phosphatase 58 U/L (46-116); Aspartate Amino Transferase 15 U/L (15-37); Bilirubin,Total 0.7 mg/dL (0.00-1.00); Total Protein 7.2 g/dL (6.4-8.2)
[2024-07-05 12:49] LABS: NT Pro B Type Natriuretic Pept 413 pg/mL (0-450); Troponin I 9.6 ng/L (0.00-60.4)
[2024-07-05] MEDS: ALBUTEROL SULFATE NEB 2.5 MG/3 ML INH INHALATION (13:30)
--- NOTE | 2024-07-05 14:40 | PC.NURSE ---
Pt arrived on the floor at 1415. Pt is alert,oriented x3, ambulatory with steady gait. Wearing O2 @ 2L/NC . Pt sating at 91 %. Visiting hours policy, call system and TV control reviewed with pt. VS stable.
[2024-07-05] MEDS: AZITHROMYCIN 250 MG TABLET 500 MG PO (15:54)
[2024-07-05] MEDS: carvediloL 12.5 MG TABLET PO (20:27)
[2024-07-05] MEDS: PRAVASTATIN SODIUM 20 MG TABLET 40 MG PO (20:27)
[2024-07-05] MEDS: TAMSULOSIN HCL 0.4 MG CAPSULE PO (20:28)
[2024-07-05] MEDS: guaiFENesin 12 HR 600 MG TABCR 1200 MG PO (20:28)
[2024-07-06] VITALS (14 sets, daily range): BP systolic 115–140; BP diastolic 49–64; PULSE 70–99; RESP 16–20; TEMP 35.8–36.2; O2SAT 90–99
[2024-07-06] MEDS: IPRATROPIUM 0.5 MG/ALBUTEROL SULFATE 2.5 MG AMPUL.NEB 3 ML INHALATION ×4 (00:39→16:55)
[2024-07-06 05:41] LABS: Basophils Absolute Auto 0.01 K/mm3 (0.00-0.10); Basophils Percent Auto 0.1 % (0.0-1.0); Hematocrit 34.4 % (37.0-46.0); Hemoglobin 11.5 g/dL (12.4-15.3); Immature Granulocyte Absolute 0.03 K/mm3 (0.00-0.00); Immature Granulocyte Percent A 0.3 % (0.0-0.0); Lymphocytes Absolute Auto 0.74 K/mm3 (1.10-4.50); Lymphocytes Percent Auto 8.4 % (18.0-42.0); Mean Corpuscular HGB Conc 33.4 g/dL (32-36); Mean Corpuscular Hemoglobin 30.7 pg (27.0-31.0); Mean Platelet Volume 9.2 fl (8.7-11.0); Monocytes Absolute Auto 0.19 K/mm3 (0.10-0.90); Monocytes Percent Auto 2.1 % (2.0-11.0); Neutrophils Absolute Auto 7.88 K/mm3 (1.70-7.20); Neutrophils Percent Auto 89.1 % (50.0-70.0); Platelet Count Result 185 K/mm3 (150-420); Red Blood Count 3.74 M/mm3 (4.70-6.10); Red Cell Distribution Width 12.1 % (11.6-14.4); White Blood Count 8.9 K/mm3 (4.8-10.8)
[2024-07-06 05:55] LABS: Alanine Aminotransferase 16 U/L (16-63); Albumin Level 3.2 g/dL (3.4-5.0); Alkaline Phosphatase 54 U/L (46-116); Anion Gap 9 mmol/L (4-12); Aspartate Amino Transferase 11 U/L (15-37); Bilirubin,Total 0.5 mg/dL (0.00-1.00); Blood Urea Nitrogen 43 mg/dL (7-18); Carbon Dioxide 28 mmol/L (21-32); Chloride 100 mmol/L (98-108); Estimated CRCL calculation 32 ml/min; Estimated Glomerular Filt Rate 45; Glucose 158 mg/dL (70-99); Magnesium 1.9 mg/dL (1.8-2.4); Osmolality Calculated 297 mOsm/kg (285-295); Potassium 4.6 mmol/L (3.5-5.1); Sodium 137 mmol/L (136-145); Total Protein 6.7 g/dL (6.4-8.2)
[2024-07-06] MEDS: guaiFENesin 12 HR 600 MG TABCR 1200 MG PO ×2 (08:20→21:01)
[2024-07-06] MEDS: carvediloL 12.5 MG TABLET PO ×2 (08:20→21:01)
[2024-07-06] MEDS: predniSONE 20 MG TABLET 40 MG PO (08:20)
[2024-07-06] MEDS: ENOXAPARIN 40 MG/0.4 ML SYRINGE SUB-Q (08:21)
[2024-07-06] MEDS: AZITHROMYCIN 250 MG TABLET 500 MG PO (08:21)
--- NOTE | 2024-07-06 08:31 | P.HP_ITS ---
H&P: HPI History of Present Illness Date/Time: 07/06/24 08:31 Chief Complaint: Shortness of breaths Narrative: Patient is an 78-year-old male who presented to the emergency department with worsening shortness of breath. Patient stated his shortness a breath had been getting progressively worse for the last few days prior to arrival when his daughter who was a nurse took his pulse ox at home and he was 81% on room air. Patient did report he was exposed to COVID several days prior but did not test positive in the emergency department. patient has a past medical history of emphysema, hypertension, HLD, and BPH reports he was a 50 year smoker and worked in the [employer]. patient denied any chest pain he, nausea, vomiting, dizziness, abdominal pain visual changes. chest CTA was completed in the emergency department which showed no pulmonary embolism however did show mild emphysema with scattered subtle tree-in-bud opacities which could do acute infectious bronchiolitis and more chronic respiratory bronchiolitis interstitial lung disease. patient did have leukocytosis and mild CAESAR he was admitted to the medical unit for further evaluation and treatment of acute respiratory sada lure with hypoxia likely secondary to COPD exacerbation and possible infectious bronchiolitis. Review of Systems Review of Systems: All systems reviewed & are unremarkable except as noted in HPI and below PMFSH Past Medical History Medical History COPD (chronic obstructive pulmonary disease) with emphysema Hyperlipidemia HTN (hypertension) Bladder stone Elevated PSA Surgical History Surgical History H/O cystoscopy Social History Social History Smoking status: Unknown if ever smoked Second hand tobacco smoke exposure: No Alcohol intake: never Substance use: never Substance use type: does not use Do You Feel Safe in your Home?: Yes Lack of Transportation: No Lack of Food: Never True Current Housing: I Have Housing Concerned About Future Housing: No Difficulty Paying Gas/Electric Bills: No Difficulty Paying for Meds: No Currently Unemployed: No Education: High School Diploma/GED Difficulty w/ Childcare or Family Care: No Living arrangements: with family Gender identity (if verbalized by the patient): Male Spiritual care concerns: No Meds Home Medications and Allergies Home Medications ?Medication ?Instructions ?Recorded ?Confirmed ?Type lisinopril 20 1 tablet PO DAILY 12/02/20 07/05/24 History mg-hydrochlorothiazide 25 mg tablet tamsulosin 0.4 mg capsule 0.4 mg PO HS #10 caps 12/02/20 07/05/24 Rx fluticasone propionate 115 2 puff inhalation Q12H 07/05/24 07/05/24 History mcg-salmeterol 21 mcg/actuation HFA inhaler (Advair HFA) latanoprost 0.005 % eye drops 1 drp EACH EYE QPM 07/05/24 07/05/24 History pravastatin 40 mg tablet 40 mg PO QHS 07/05/24 07/05/24 History Allergies Allergy/AdvReac Type Severity Reaction Status Date / Time Penicillins Allergy Severe Swelling Verified 07/05/24 11:49 Vital Signs Vital Signs - 24 hr 07/05/24 11:45 07/05/24 11:45 07/05/24 11:47 Temperature 98.1 F Pulse Rate 119 H 109 H Respiratory Rate 22 H Blood Pressure 136/68 Pulse Oximetry 90 90 Oxygen Delivery Room Air Room Air Oxygen Flow Rate 07/05/24 11:51 07/05/24 11:54 07/05/24 11:59 Temperature Pulse Rate 110 H 105 H 104 H Respiratory Rate 31 H 20 20 Blood Pressure Pulse Oximetry 88 L 95 98 Oxygen Delivery Oxygen Flow Rate 07/05/24 12:00 07/05/24 12:01 07/05/24 12:15 Temperature Pulse Rate 103 H 104 H 100 Respiratory Rate 18 21 H 21 H Blood Pressure 106/90 Pulse Oximetry 99 99 90 Oxygen Delivery Oxygen Flow Rate 07/05/24 12:23 07/05/24 12:30 07/05/24 12:31 Temperature Pulse Rate 105 H 104 H 103 H Respiratory Rate 25 H 23 H Blood Pressure 113/54 L 109/59 L Pulse Oximetry 86 L 88 L 85 L Oxygen Delivery Oxygen Flow Rate 07/05/24 12:45 07/05/24 12:45 07/05/24 12:46 Temperature Pulse Rate 109 H 103 H 100 Respiratory Rate 23 H 25 H Blood Pressure 116/62 Pulse Oximetry 83 L 87 L Oxygen Delivery Oxygen Flow Rate 07/05/24 13:05 07/05/24 13:15 07/05/24 13:30 Temperature Pulse Rate 115 H 96 96 Respiratory Rate 31 H 29 H 29 H Blood Pressure Pulse Oximetry 85 L 86 L 88 L Oxygen Delivery Oxygen Flow Rate 07/05/24 13:33 07/05/24 13:43 07/05/24 13:45 Temperature Pulse Rate 95 100 108 H Respiratory Rate 18 20 27 H Blood Pressure Pulse Oximetry 91 96 90 Oxygen Delivery Nasal Cannula Oxygen Flow Rate 2 2 2 07/05/24 13:45 07/05/24 15:00 07/05/24 15:02 Temperature 97.9 F 97.8 F Pulse Rate 99 106 H 107 H Respiratory Rate 29 H 18 14 Blood Pressure 111/74 144/75 H Pulse Oximetry 94 92 91 Oxygen Delivery Nasal Cannula Nasal Cannula Nasal Cannula Oxygen Flow Rate 2 2 2 07/05/24 15:07 07/05/24 16:25 07/05/24 17:58 Temperature 96.8 F L Pulse Rate 107 H 106 H 103 H Respiratory Rate 14 18 18 Blood Pressure 126/64 Pulse Oximetry 91 92 92 Oxygen Delivery Nasal Cannula Nasal Cannula Oxygen Flow Rate 2 2 2 07/05/24 18:08 07/05/24 20:27 07/05/24 23:00 Temperature Pulse Rate 110 H 106 H 70 Respiratory Rate 18 Blood Pressure Pulse Oximetry 95 Oxygen Delivery Oxygen Flow Rate 2 07/06/24 00:00 07/06/24 00:39 07/06/24 01:00 Temperature 97 F L Pulse Rate 86 86 74 Respiratory Rate 18 18 18 Blood Pressure 140/62 Pulse Oximetry 97 97 99 Oxygen Delivery Nasal Cannula Oxygen Flow Rate 2 2 2 07/06/24 04:00 07/06/24 04:00 07/06/24 06:10 Temperature 96.5 F L Pulse Rate 70 84 74 Respiratory Rate 16 18 Blood Pressure 123/64 Pulse Oximetry 95 94 Oxygen Delivery Nasal Cannula Oxygen Flow Rate 2 2 07/06/24 06:25 07/06/24 08:00 07/06/24 08:00 Temperature 97.2 F L Pulse Rate 99 89 89 Respiratory Rate 16 18 Blood Pressure 128/58 L Pulse Oximetry 92 90 Oxygen Delivery Nasal Cannula Oxygen Flow Rate 2 2 07/06/24 08:20 Temperature Pulse Rate 89 Respiratory Rate Blood Pressure Pulse Oximetry Oxygen Delivery Oxygen Flow Rate Exam Narrative: P: 89 Temp: 97.2 BP: 128/58 RR: 18 SPO2: 90 2L NC * GENERAL: Alert and oriented x 3 pleasant male. No acute distress. * EYES: EOMI. No scleral icterus. PERRLA. * HEENT: Moist mucous membranes. * LUNGS: diminished throughout with scant rhonchi on auscultation bilaterally. No accessory muscle use. * CARDIOVASCULAR: Regular rate and rhythm. No murmur. No JVD. S1-S2 * ABDOMEN: Soft, non tenderness and non-distended. No palpable masses. * EXTREMITIES: No edema. Non-tender * SKIN: No rashes or lesions. Skin warm, dry. * NEUROLOGIC: No focal neurological deficits. CN II-XII grossly intact * PSYCHIATRIC: Appropriate mood and affect. Good judgement and insight. H&P: Results Labs Labs: Short CBC 07/05/24 07/06/24 Range/Units 12:09 05:35 WBC 12.5 H 8.9 (4.8-10.8) K/mm3 Hgb 12.4 11.5 L (12.4-15.3) g/dL Hct 37.1 34.4 L (37.0-46.0) % Plt Count 200 185 (150-420) K/mm3 BMP 07/05/24 07/06/24 12:09 05:35 Sodium 139 137 Potassium 4.4 4.6 Chloride 100 100 Carbon Dioxide 29 28 BUN 39 H 43 H Creatinine 1.38 H 1.50 H Glucose 140 H 158 H Calcium 9.3 9.0 Cardiac Enzymes 07/05/24 Range/Units 12:09 Troponin I 9.6 (0.00-60.4) ng/L Liver Function 07/05/24 07/06/24 Range/Units 12:09 05:35 Total Bilirubin 0.7 0.5 (0.00-1.00) mg/dL AST 15 11 L (15-37) U/L ALT 21 16 (16-63) U/L Alkaline Phosphatase 58 54 (46-116) U/L Albumin 3.6 3.2 L (3.4-5.0) g/dL Imaging CT scan - chest: Radiologist's impression: EXAMINATION: CTA chest PE protocol DATE: 07/05/2024 13:06 INDICATION: Cough, dyspnea on exertion, less appetite. COPD. TECHNIQUE: Computed tomography (CT) pulmonary angiogram of the chest was performed with 100 mL Omnipaque-350 intravenous contrast. Additional 3D reconstructions utilizing coronal maximum intensity projection (MIP) were performed. Automated exposure control and iterative reconstruction technique were employed. The dose-length product was 231.77 mGy-cm. COMPARISON: 06/05/21 FINDINGS: No pulmonary embolism. Mild emphysema. Scattered tree-in-bud opacities in both lungs consistent with bronchiolitis with endobronchial spread of disease. Calcified right upper lobe nodule consistent with old granulomatous disease. Unchanged 9 x 5 mm right lower lobe nodule with a couple punctate internal calcification is also likely sequela of old granulomatous disease. No pulmonary edema, pleural effusion or pneumothorax. Heart size is normal. Atherosclerotic coronary artery calcifications. No pericardial effusion. Thoracic aorta is normal in caliber with no dissection. No pathologically enlarged thoracic lymphadenopathy. Visualized upper abdomen is unremarkable. Severe thoracic spondylosis. IMPRESSION: 1. No pulmonary embolism. 2. Mild emphysema with scattered subtle tree-in-bud opacities which could be due to acute infectious bronchiolitis or more chronic respiratory bronchiolitis interstitial lung disease, new since prior study. Assessment and Plan Assessment and plan (1) Acute and chronic respiratory failure with hypoxia: Code(s): J96.21 - Acute and chronic respiratory failure with hypoxia Status: Acute Assessment and Plan: patient presented to the emergency department with SpO2 of 81% POA Likely secondary to COPD exacerbation with possible infectious bronchiolitis * CTA Reviewed no PE showing mild emphysema and possible infectious bronchiolitis * WBC 12.5 POA * initially requiring 4 L supplemental oxygen but has been weaned down to 2 L does not wear oxygen at home continue to wean oxygen as tolerated to maintain 92% * patient will likely need a home oxygen walk study of unable to wean oxygen * 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 * incentive spirometer (2) Acute bronchiolitis due to other infectious organisms: Code(s): J21.8 - Acute bronchiolitis due to other specified organisms Status: Acute Assessment and Plan: SEE ABOVE PLAN #1 (3) COPD (chronic obstructive pulmonary disease) with emphysema: Code(s): J43.9 - Emphysema, unspecified Status: Acute Assessment and Plan: * Bronchodilators. * CTA with emphysema and bronchiolitis * incentive spirometry while awake. * steroids initiated * azithromycin 500 x 1 day/250 daily/ Rocephin * supplemental oxygen therapy to maintain oxygen 92% * Pneumonia and flu vaccination advised. * Evaluation from home O2 if saturation less than 88% on room air. * former smoker quit 20 years ago * Follow-up with salt lifter as an outpatient will need referral from primary care physician (4) HTN (hypertension): Code(s): I10 - Essential (primary) hypertension Status: Acute Assessment and Plan: patient was taking hydrochlorothiazide and lisinopril however due to patient's age, BPH and CAESAR transitioned to BB he was also tachycardic POA * 144/75 HR 116 POA * switched to carvedilol 12.5 b.i.d. he will need this as a prescription at discharge discontinue his hydrochlorothiazide /lisinopril * monitor BP per unit protocol (5) Hyperlipidemia: Code(s): E78.5 - Hyperlipidemia, unspecified Status: Acute Assessment and Plan: * resumed patient's statin (6) CAESAR (acute kidney injury): Code(s): N17.9 - Acute kidney failure, unspecified Status: Acute Assessment and Plan: * Cr 1.32 POA * did receive contrast for CTA emergency department follow-up creatinine 1.50 * will give patient 500 bolus of normal saline * discontinue his hydrochlorothiazide * follow-up CMP in the a.m. * avoid nephrotoxic medications Plan Code status: Full code per patient DVT prophylaxis: Lovenox Stress ulcer prophylaxis: NA PT/OT notes: Ambulatory Disposition: patient was admitted to the medical unit for acute respiratory failure with hypoxia secondary to COPD exacerbation and possible infectious bronchiolitis will continue with bronchodilators, IV antibiotics and steroids will need to attempt to wean oxygen patient does not wear oxygen at home if unable to wean will need 6 minute walk study. plan is to return home when me dically stable I did recommend follow-up with primary care physician and a referral to a salt lifter would likely benefit from PFT testing Quality VTE Prophylaxis VTE prophylaxis: pharmacologic ordered -Patient's previous records reviewed on admission -ER notes reviewed in detail on admission -discussed all findings and current treatment plan with patient/Family/POA -Consultations reviewed for recommendations -Patient's disposition for safe discharge discussed with binder caser Dictation performed by [facility] direct speech recognition software, therefore armor senior sergeant variants and typographical errors may occur. Hospitalist [facility] Advance Care Plan I have confirmed that the patient's Advanced Care Plan is present, code status is documented, or surrogate decision maker is listed in patient medical record.: Yes Medication Reconciliation I have utilized all available resources to obtain, update and review the patients current medications (includes all prescriptions, OTC, herbals, cannabis, and nutritional supplements).: Yes The patient is not eligible for med reconciliation; the patient is in a emergent medical situation where delaying treatment would jeopardize the patients health.: No
[2024-07-06] MEDS: SODIUM CHLORIDE 0.9% IV 500 ML IV CONT (09:21)
--- NOTE | 2024-07-06 17:32 | PHAR ---
IDENTIFIED HOME MEDICATION [id number] ([facility])?BROUGHT FROM HOME Simbrinza - 0.2%-1% Brimonidine Tartrate - 2 MG/ML Brinzolamide - 10 MG/ML Suspension
[2024-07-06] MEDS: LATANOPROST 0.005% OP SOLN 2.5 ML BTL 1 DROP EACH EYE (21:01)
[2024-07-06] MEDS: TAMSULOSIN HCL 0.4 MG CAPSULE PO (21:01)
[2024-07-06] MEDS: PRAVASTATIN SODIUM 20 MG TABLET 40 MG PO (21:01)
[2024-07-07] VITALS (10 sets, daily range): BP systolic 119–160; BP diastolic 50–62; PULSE 72–96; RESP 15–18; TEMP 35.9–36.6; O2SAT 89–97
[2024-07-07] MEDS: IPRATROPIUM 0.5 MG/ALBUTEROL SULFATE 2.5 MG AMPUL.NEB 3 ML INHALATION ×4 (00:31→17:31)
[2024-07-07 05:13] LABS: Basophils Absolute Auto 0.01 K/mm3 (0.00-0.10); Basophils Percent Auto 0.1 % (0.0-1.0); Hematocrit 32.7 % (37.0-46.0); Hemoglobin 10.8 g/dL (12.4-15.3); Immature Granulocyte Absolute 0.09 K/mm3 (0.00-0.00); Immature Granulocyte Percent A 0.6 % (0.0-0.0); Lymphocytes Absolute Auto 1.41 K/mm3 (1.10-4.50); Lymphocytes Percent Auto 9.4 % (18.0-42.0); Mean Corpuscular Hemoglobin 30.8 pg (27.0-31.0); Mean Corpuscular Volume 93.2 fL (78.0-102.0); Mean Platelet Volume 9.5 fl (8.7-11.0); Monocytes Absolute Auto 0.89 K/mm3 (0.10-0.90); Monocytes Percent Auto 5.9 % (2.0-11.0); Neutrophils Absolute Auto 12.65 K/mm3 (1.70-7.20); Platelet Count Result 211 K/mm3 (150-420); Red Blood Count 3.51 M/mm3 (4.70-6.10); Red Cell Distribution Width 12.2 % (11.6-14.4); White Blood Count 15.1 K/mm3 (4.8-10.8)
[2024-07-07 05:28] LABS: Alanine Aminotransferase 16 U/L (16-63); Albumin Level 3.1 g/dL (3.4-5.0); Alkaline Phosphatase 52 U/L (46-116); Anion Gap 9 mmol/L (4-12); Aspartate Amino Transferase 10 U/L (15-37); Bilirubin,Total 0.3 mg/dL (0.00-1.00); Blood Urea Nitrogen 61 mg/dL (7-18); Calcium 8.6 mg/dL (8.5-10.1); Carbon Dioxide 28 mmol/L (21-32); Chloride 100 mmol/L (98-108); Estimated CRCL calculation 29 ml/min; Estimated Glomerular Filt Rate 41; Glucose 132 mg/dL (70-99); Osmolality Calculated 303 mOsm/kg (285-295); Potassium 4.2 mmol/L (3.5-5.1); Sodium 137 mmol/L (136-145); Total Protein 6.2 g/dL (6.4-8.2)
[2024-07-07] MEDS: ENOXAPARIN 40 MG/0.4 ML SYRINGE SUB-Q (09:06)
[2024-07-07] MEDS: AZITHROMYCIN 250 MG TABLET 500 MG PO (09:06)
[2024-07-07] MEDS: carvediloL 12.5 MG TABLET PO ×2 (09:06→20:53)
[2024-07-07] MEDS: guaiFENesin 12 HR 600 MG TABCR 1200 MG PO ×2 (09:06→20:53)
[2024-07-07] MEDS: SACCHAROMYCES BOULARDII 250 MG CAPSULE PO ×3 (09:06→17:31)
[2024-07-07] MEDS: predniSONE 20 MG TABLET 40 MG PO (09:07)
[2024-07-07] MEDS: BRINZOLAMIDE EACH EYE ×3 (09:17→17:31)
[2024-07-07] MEDS: BRIMONIDINE TARTRATE EACH EYE ×3 (09:17→17:31)
[2024-07-07] MEDS: [UNRECOGNIZED DRUG - OTHER] EACH EYE ×3 (09:17→17:31)
--- NOTE | 2024-07-07 14:44 | P.PNIM_ITS ---
Progress Note: A&P Assessment and Plan (1) Acute and chronic respiratory failure with hypoxia: Code(s): J96.21 - Acute and chronic respiratory failure with hypoxia Status: Acute Assessment and Plan: patient presented to the emergency department with SpO2 of 81% POA Likely secondary to COPD exacerbation with possible infectious bronchiolitis * CTA Reviewed no PE showing mild emphysema and possible infectious bronchiolitis * WBC 12.5 POA * initially requiring 4 L supplemental oxygen but has been weaned down to 2 L does not wear oxygen at home continue to wean oxygen as tolerated to maintain 92% * patient will likely need a home oxygen walk study of unable to wean oxygen * 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 * incentive spirometer (2) Acute bronchiolitis due to other infectious organisms: Code(s): J21.8 - Acute bronchiolitis due to other specified organisms Status: Acute Assessment and Plan: SEE ABOVE PLAN #1 (3) COPD (chronic obstructive pulmonary disease) with emphysema: Code(s): J43.9 - Emphysema, unspecified Status: Acute Assessment and Plan: * Bronchodilators. * CTA with emphysema and bronchiolitis * incentive spirometry while awake. * steroids initiated * azithromycin 500 x 1 day/250 daily/ Rocephin * supplemental oxygen therapy to maintain oxygen 92% * Pneumonia and flu vaccination advised. * Evaluation from home O2 if saturation less than 88% on room air. * former smoker quit 20 years ago * Follow-up with senior gis analyst as an outpatient will need referral from primary care physician (4) HTN (hypertension): Code(s): I10 - Essential (primary) hypertension Status: Acute Assessment and Plan: patient was taking hydrochlorothiazide and lisinopril however due to patient's age, BPH and CAESAR transitioned to BB he was also tachycardic POA * 144/75 HR 116 POA * switched to carvedilol 12.5 b.i.d. he will need this as a prescription at discharge discontinue his hydrochlorothiazide /lisinopril * monitor BP per unit protocol (5) Hyperlipidemia: Code(s): E78.5 - Hyperlipidemia, unspecified Status: Acute Assessment and Plan: * resumed patient's statin (6) CAESAR (acute kidney injury): Code(s): N17.9 - Acute kidney failure, unspecified Status: Acute Assessment and Plan: * Cr 1.32 POA * did receive contrast for CTA emergency department follow-up creatinine 1.50 * will give patient 500 bolus of normal saline * discontinue his hydrochlorothiazide * follow-up CMP in the a.m. * avoid nephrotoxic medications Plan Code status: Full code per patient DVT prophylaxis: Lovenox Stress ulcer prophylaxis: NA PT/OT notes: Ambulatory Disposition: patient was admitted to the medical unit for acute respiratory failure with hypoxia secondary to COPD exacerbation and possible infectious bronchiolitis will continue with bronchodilators, IV antibiotics and steroids will need to attempt to wean oxygen patient does not wear oxygen at home if unable to wean will need 6 minute walk study. plan is to return home when medically stable I did recommend follow-up with primary care physician and a referral to a senior gis analyst would likely benefit from PFT testing Subjective Date/time seen: 07/07/24 14:44 Interval history: Patient is still on oxygen and he has been told that he needed oxygen a while ago. Patient informs me that he is feeling better but he is aware that he is in need of the oxygen and he does feel like it helps. Patient is in need of a walk study for home oxygen. I discussed with Mr. Sheldon on the nebulizer and he is able to afford a nebulizer at [place] so he can pick it up when he is discharged. He would not want to wait long to see if his insurance approves it he would just pay for it. I discussed with patient about his white blood count and it could be associated with the steroids but it could be due to his illness. We will continue to monitor and await results of walk study and plan for dis charge in the am with oxygen. Exam Narrative: P: 89 Temp: 97.2 BP: 128/58 RR: 18 SPO2: 90 2L NC * GENERAL: Alert and oriented x 3 pleasant male. No acute distress. * EYES: EOMI. No scleral icterus. PERRLA. * HEENT: Moist mucous membranes. * LUNGS: diminished throughout with scant rhonchi on auscultation bilaterally. No accessory muscle use. * CARDIOVASCULAR: Regular rate and rhythm. * ABDOMEN: Soft, non tenderness and non-distended. No palpable masses. * EXTREMITIES: No edema. Non-tender * SKIN: No rashes or lesions. Skin warm, dry. * NEUROLOGIC: No focal neurological deficits. * PSYCHIATRIC: Appropriate mood and affect. Good judgement and insight. Objective Data Vital Signs Vital Signs: Vital Signs - 24 hr 07/06/24 16:00 07/06/24 16:55 07/06/24 17:05 Temperature 97 F L Pulse Rate 72 83 85 Respiratory Rate 16 20 20 Blood Pressure 115/49 L Pulse Oximetry 93 94 98 Oxygen Delivery Nasal Cannula Oxygen Flow Rate 2 07/07/24 00:00 07/07/24 00:31 07/07/24 06:00 Temperature 97.9 F Pulse Rate 96 86 Respiratory Rate 15 Blood Pressure 160/62 H Pulse Oximetry 89 L 92 97 Oxygen Delivery Nasal Cannula Nasal Cannula Oxygen Flow Rate 2 2 2 07/07/24 06:23 07/07/24 08:00 07/07/24 09:06 Temperature 96.6 F L Pulse Rate 72 72 Respiratory Rate 17 Blood Pressure 119/50 L Pulse Oximetry 90 94 Oxygen Delivery Nasal Cannula Room Air Oxygen Flow Rate 1 Intake/Output Intake/Output: Intake & Output 07/04/24 07/05/24 07/06/24 07/07/24 23:59 23:59 23:59 23:59 Intake Total 690 2300 1150 Balance 690 2300 1150 Meds/Results Medications: Active Medications Generic Name Dose Route Start Last Admin Trade Name Freq PRN Reason Stop Dose Admin Acetaminophen 650 mg 07/05/24 14:03 Acetaminophen 325 Mg Tablet PO Q4H PRN Mild Pain (1-3) or Fever Hydrocodone Bitart/Acetaminophen 1 tab 07/05/24 14:05 Hydrocodone/Acetaminophen (*Crx) 5-325 Mg Tablet PO Q4H PRN Pain Rated 4-6 Albuterol/Ipratropium 3 ml 07/05/24 18:30 07/07/24 12:44 Ipratropium 0.5 Mg/Albuterol Sulfate 2.5 Mg Ampul.Neb 3 Ml INHALATION 3 ml Q6HRT SHEILA Administration Azithromycin 500 mg 07/05/24 15:00 07/07/24 09:06 Azithromycin 250 Mg Tablet PO 500 mg DAILY SHEILA Administration Carvedilol 12.5 mg 07/05/24 21:00 07/07/24 09:06 Carvedilol 12.5 Mg Tablet PO 12.5 mg Q12HR SHEILA Administration Enoxaparin Sodium 40 mg 07/06/24 09:00 07/07/24 09:06 Enoxaparin 40 Mg/0.4 Ml Syringe SUB-Q 40 mg DAILY SHEILA Administration Guaifenesin 1,200 mg 07/05/24 21:00 07/07/24 09:06 Guaifenesin 12 Hr 600 Mg Tabcr PO 1,200 mg Q12HR SHEILA Administration Ceftriaxone Sodium 1 gm in 50 mls @ 100 mls/hr 07/05/24 14:00 07/07/24 13:14 Rocephin 1 Gm/Ns 50 Ml IVPB Infused Q24H SHEILA Infusion Latanoprost 1 drop 07/06/24 21:00 07/06/24 21:01 Latanoprost 0.005% Op Soln 2.5 Ml Btl EACH EYE 1 drop HS SHEILA Administration Non-Formulary ( 1 each 07/07/24 09:00 07/07/24 13:48 Brinzolamide/ EACH EYE 08/06/24 08:59 1 each Brimonidine Tartrate TID SHEILA Administration 1 %-0.2 % Ophthalmic (Eye) Suspen...) Ondansetron HCl 4 mg 07/05/24 14:03 Ondansetron Inj 4 Mg/2 Ml Vial IV PUSH Q6H PRN Nausea And Vomiting Pravastatin Sodium 40 mg 07/05/24 21:00 07/06/24 21:01 Pravastatin Sodium 20 Mg Tablet PO 40 mg QHS SHEILA Administration Prednisone 40 mg 07/06/24 08:00 07/07/24 09:07 Prednisone 20 Mg Tablet PO 40 mg DAILY@0800 SHEILA Administration Saccharomyces Boulardii 250 mg 07/07/24 09:00 07/07/24 12:44 Saccharomyces Boulardii 250 Mg Capsule PO 250 mg TID SHEILA Administration Tamsulosin HCl 0.4 mg 07/05/24 21:00 07/06/24 21:01 Tamsulosin Hcl 0.4 Mg Capsule PO 0.4 mg HS SHEILA Administration Radiology Results: ITS Impressions Chest CTA 07/05/24 13:09 IMPRESSION: 1. No pulmonary embolism. 2. Mild emphysema with scattered subtle tree-in-bud opacities which could be due to acute infectious bronchiolitis or more chronic respiratory bronchiolitis interstitial lung disease, new since prior study. Labs Labs: Laboratory Results - last 24 hr 07/07/24 05:08 WBC 15.1 H RBC 3.51 L Hgb 10.8 L Hct 32.7 L MCV 93.2 MCH 30.8 MCHC 33.0 RDW 12.2 Plt Count 211 MPV 9.5 Immature Gran % (Auto) 0.6 H Neut % (Auto) 84.0 H Lymph % (Auto) 9.4 L [place] % (Auto) 5.9 Eos % (Auto) 0.0 L Baso % (Auto) 0.1 Lymph # (Auto) 1.41 [place] # (Auto) 0.89 Eos # (Auto) 0.00 L Baso # (Auto) 0.01 Abs Immat Gran (auto) 0.09 H Absolute Neuts (auto) 12.65 H Absolute Nucleated RBC 0.00 Nucleated RBC % 0.0 Sodium 137 Potassium 4.2 Chloride 100 Carbon Dioxide 28 Anion Gap 9 BUN 61 H Creatinine 1.63 H Estim Creat Clear Calc 29 Estimated GFR 41 L Glucose 132 H Calculated Osmolality 303 H Calcium 8.6 Magnesium 2.0 Total Bilirubin 0.3 AST 10 L ALT 16 Alkaline Phosphatase 52 Total Protein 6.2 L Albumin 3.1 L
[2024-07-07] MEDS: LATANOPROST 0.005% OP SOLN 2.5 ML BTL 1 DROP EACH EYE (20:52)
[2024-07-07] MEDS: TAMSULOSIN HCL 0.4 MG CAPSULE PO (20:53)
[2024-07-07] MEDS: PRAVASTATIN SODIUM 20 MG TABLET 40 MG PO (20:53)
--- NOTE | 2024-07-07 23:30 | PC.NURSE ---
Pt asleep and no signs of respiratory distress noted.
[2024-07-08] VITALS (17 sets, daily range): BP systolic 132–135; BP diastolic 62–63; PULSE 72–104; RESP 20; TEMP 36.1; O2SAT 86–96
[2024-07-08] MEDS: IPRATROPIUM 0.5 MG/ALBUTEROL SULFATE 2.5 MG AMPUL.NEB 3 ML INHALATION ×2 (00:18→06:28)
--- NOTE | 2024-07-08 00:20 | PC.NURSE ---
Pt given a duoneb treatment which he tolerated well. Pt has very diminished breath sounds bilaterally with wheezes. SAO2 is 92% with oxygen on at 2 liters per nasal cannula.
--- NOTE | 2024-07-08 02:10 | PC.NURSE ---
Pt asleep and no signs of respiratory distress noted.
--- NOTE | 2024-07-08 04:05 | PC.NURSE ---
Pt asleep and respirations remain even and unlabored.
[2024-07-08 05:15] LABS: Basophils Absolute Auto 0.01 K/mm3 (0.00-0.10); Basophils Percent Auto 0.1 % (0.0-1.0); Hematocrit 34.6 % (37.0-46.0); Hemoglobin 11.7 g/dL (12.4-15.3); Immature Granulocyte Absolute 0.08 K/mm3 (0.00-0.00); Immature Granulocyte Percent A 0.7 % (0.0-0.0); Lymphocytes Absolute Auto 1.47 K/mm3 (1.10-4.50); Lymphocytes Percent Auto 12.7 % (18.0-42.0); Mean Corpuscular HGB Conc 33.8 g/dL (32-36); Mean Corpuscular Hemoglobin 31.5 pg (27.0-31.0); Mean Platelet Volume 9.4 fl (8.7-11.0); Monocytes Absolute Auto 0.66 K/mm3 (0.10-0.90); Monocytes Percent Auto 5.7 % (2.0-11.0); Neutrophils Percent Auto 80.8 % (50.0-70.0); Platelet Count Result 254 K/mm3 (150-420); Red Blood Count 3.72 M/mm3 (4.70-6.10); White Blood Count 11.6 K/mm3 (4.8-10.8)
--- NOTE | 2024-07-08 06:00 | PC.NURSE ---
Pt up to the bathroom with standby assist of one. Pt voided and returned to the chair. Pt watching TV at this time.
[2024-07-08 06:05] LABS: Alanine Aminotransferase 19 U/L (16-63); Alkaline Phosphatase 54 U/L (46-116); Anion Gap 10 mmol/L (4-12); Aspartate Amino Transferase 11 U/L (15-37); Bilirubin,Total 0.4 mg/dL (0.00-1.00); Carbon Dioxide 28 mmol/L (21-32); Chloride 104 mmol/L (98-108); Glucose 120 mg/dL (70-99); Potassium 4.6 mmol/L (3.5-5.1); Sodium 142 mmol/L (136-145); Total Protein 6.2 g/dL (6.4-8.2)
[2024-07-08 06:11] LABS: Albumin Level 3.4 g/dL (3.4-5.0); Blood Urea Nitrogen 51 mg/dL (7-18); Estimated CRCL calculation 37 ml/min; Estimated Glomerular Filt Rate 55; Magnesium 2.3 mg/dL (1.8-2.4); Osmolality Calculated 308 mOsm/kg (285-295)
[2024-07-08] MEDS: SACCHAROMYCES BOULARDII 250 MG CAPSULE PO (09:05)
[2024-07-08] MEDS: ENOXAPARIN 40 MG/0.4 ML SYRINGE SUB-Q (09:05)
[2024-07-08] MEDS: carvediloL 12.5 MG TABLET PO (09:05)
[2024-07-08] MEDS: AZITHROMYCIN 250 MG TABLET 500 MG PO (09:05)
[2024-07-08] MEDS: predniSONE 20 MG TABLET 40 MG PO (09:05)
[2024-07-08] MEDS: guaiFENesin 12 HR 600 MG TABCR 1200 MG PO (09:05)
[2024-07-08] MEDS: BRIMONIDINE TARTRATE EACH EYE (09:06)
[2024-07-08] MEDS: BRINZOLAMIDE EACH EYE (09:06)
[2024-07-08] MEDS: [UNRECOGNIZED DRUG - OTHER] EACH EYE (09:06)
--- NOTE | 2024-07-08 09:08 | P.DS_ITS ---
DS: Admitting Diagnosis Discharge Date 07/08/24 Admitting Diagnosis Acute on chronic respiratory failure with hypoxia Acute bronchiolitis due to other infectious organisms COPD with emphysema hypertension hyperlipidemia CAESAR DS: Discharge Diagnosis Discharge Diagnosis (1) Acute and chronic respiratory failure with hypoxia: Code(s): J96.21 - Acute and chronic respiratory failure with hypoxia Status: Acute (2) Acute bronchiolitis due to other infectious organisms: Code(s): J21.8 - Acute bronchiolitis due to other specified organisms Status: Acute (3) COPD (chronic obstructive pulmonary disease) with emphysema: Code(s): J43.9 - Emphysema, unspecified Status: Acute (4) HTN (hypertension): Code(s): I10 - Essential (primary) hypertension Status: Acute (5) Hyperlipidemia: Code(s): E78.5 - Hyperlipidemia, unspecified Status: Acute (6) CAESAR (acute kidney injury): Code(s): N17.9 - Acute kidney failure, unspecified Status: Acute DS: Summary Hospital Course Reason for hospitalization: Acute on chronic respiratory failure with hypoxia Acute bronchiolitis due to other infectious organisms COPD with emphysema hypertension hyperlipidemia CAESAR Hospital Course: this is an 78-year-old male who presented to the hospital on 07/06/2024 with shortness of breath and hypoxia. He was placed on oxygen while in the ED. Workup in the hospital included a chest CTA which was negative for PE however did show some mild emphysema with scattered subtle tree-in-bud opacities which could be acute infectious bronchiolitis and chronic respiratory bronchiolitis interstitial lung disease. Initial labs shown a white blood cell count of 12.5, creatinine 1.38, EGFR 50. Respiratory panel was negative for influenza a and B, RSV, COVID. Blood cultures were obtained and so far showing no growth to date on preliminary read which is day 3. He was started on Rocephin and azithromycin. his oxygen was weaned to off. His white blood count has come down to 11.6 however he is on steroids. He is afebrile, his vital signs are stable. His creatinine is back to baseline of 1.27 today. Rocephin and azithromycin were discontinued and he was started on Levaquin. He will continue on a prednisone taper. He will need to finish his full course of antibiotics And steroid, then follow up with his primary care doctor in 1 week. We did do a home O2 evaluation And he does desaturate below 90% with activity. He will be going home on oxygen for use with activity. he will need to talk to his primary care doctor about getting a rn procedure referral for PFTs. Final diagnosis: Acute on chronic respiratory failure with hypoxia, community acquired pneumonia, COPD exacerbation, CAESAR Status at Discharge Cognitive/behavioral status at discharge: Alert and oriented x3 Functional status at discharge: independent ambulation Overall status at discharge: patient is progressing back to baseline Time Spent with Patient Time attestation: Total time spent providing and/or coordinating discharge services: Time spent: Greater than 30 minutes Exam Narrative: General: In no acute distress, well nourished Head: atraumatic, no encephalopathy Eyes: PERRLA, sclera clear ENT: moist mucous membranes, nasal passages clear Neck: supple, no JVD, no adenopathy, trachea midline Cardiac: Normal S1 and S2. RRR,No murmur, gallops or friction rubs, peripheral pulses intact. Respiratory: mild wheezing left lung base, diminished breath sounds, no adventitious lung sounds, currently on room air Gastrointestinal: soft, non-distended, non-tender, normoactive bowel sounds. : voiding without difficulty. Extremities: moves all extremities well, no edema Skin: clean, dry, intact. No wounds or lesions. Neuro: Alert and oriented x4, cranial nerves intact, no neuro deficits. Psych: normal mood, normal affect, interactive DS: Data Data Completed and Pending Completed studies during hospitalization: Chest CTA Pending studies at discharge: blood cultures Labs on day of discharge: Labs from last 24 hours 07/08/24 05:05 WBC 11.6 H RBC 3.72 L Hgb 11.7 L Hct 34.6 L MCV 93.0 MCH 31.5 H MCHC 33.8 RDW 12.0 Plt Count 254 MPV 9.4 Immature Gran % (Auto) 0.7 H Neut % (Auto) 80.8 H Lymph % (Auto) 12.7 L [place] % (Auto) 5.7 Eos % (Auto) 0.0 L Baso % (Auto) 0.1 Lymph # (Auto) 1.47 [place] # (Auto) 0.66 Eos # (Auto) 0.00 L Baso # (Auto) 0.01 Abs Immat Gran (auto) 0.08 H Absolute Neuts (auto) 9.40 H Absolute Nucleated RBC 0.00 Nucleated RBC % 0.0 Sodium 142 Potassium 4.6 Chloride 104 Carbon Dioxide 28 Anion Gap 10 BUN 51 H Creatinine 1.27 Estim Creat Clear Calc 37 Estimated GFR 55 L Glucose 120 H Calculated Osmolality 308 H Calcium 9.0 Magnesium 2.3 Total Bilirubin 0.4 AST 11 L ALT 19 Alkaline Phosphatase 54 Total Protein 6.2 L Albumin 3.4 Preliminary micro results at discharge 07/05/24 12:20 Blood Culture - Preliminary Blood 07/05/24 12:20 Blood Culture - Preliminary Blood Procedures/Treatments: None Discharge Plan Discharge Attending physician on discharge: Rambo Hughes Discharging Clinician: Dina Velasquez Anticipated Discharge Date/Time: 07/08/24 08:57 Patient Disposition: Home, Self-Care Activity: as tolerated Diet: as tolerated Discharge Instructions: * Finish all your antibiotic as directed even if you are feeling better * Finish all of your prednisone, taper as instructed * Follow up with primary care doctor in 1 week, you will need a referral to a rn procedure for further evaluation and management of your COPD * I prescribed an albuterol inhaler, nebulizer with accessories, and DuoNebs for use at home. Use your rescue inhaler 1st if you become short of breath /wheezing. If you do not get any relief try your rescue inhaler for a 2nd time. If you still do not get relief give yourself a nebulized treatment. You can repeat the nebulized treatment a 2nd time before seeking care at your local ER. * I listed a rn procedure at [facility] down below you can call them for an appointment after you follow-up with your primary care doctor. Patient Instructions: Antibiotic Form, Amoxicillin/Clavulanate Potassium (By mouth), Azithromycin (By mouth), Bronchiolitis (DC), Bacterial Pneumonia (DC), Chronic Lung Disease and Infection Prevention (DC) Patient Language: Persian Stand Alone Forms: General Discharge Information Follow-up/Referrals: Jose De Jesus Covarrubias MD [Primary Care Provider] - 1 week Yair Ibanez MD [Physician] - 4 Weeks (PFT's and management of COPD) Discharge Medications: New (DME) nebulizer and compressor Device See Rx Instructions .Route Qty: 1 0RF Rx Instructions: As directed (DME) nebulizer accessories Kit See Rx Instructions .Route Qty: 1 0RF Rx Instructions: As directed guaifenesin [Mucus Relief ER] 600 mg Tablet Extended Release 12hr 1,200 mg PO Q12HR Qty: 20 0RF Saccharomyces boulardii [Florastor] 250 mg Capsule 250 mg PO TID Qty: 30 0RF levofloxacin 750 mg Tablet 750 mg PO DAILY Qty: 6 0RF prednisone 10 mg tablet 10 mg PO DAILY Qty: 30 0RF Rx Instructions: Take 40mg (4 tabs) for the next 3 days starting tomorrow, Then decrease to 30mg ( 3 tabs) for the next 3 days, Then decrease to 20mg (2 tabs) for the next 3 days, Then decrease to 10 mg (1 tab) for the next 3 days, Then discontinue ipratropium-albuterol 0.5 mg-3 mg(2.5 mg base)/3 mL solution for nebulization 3 ml inhalation Q6H PRN (Reason: shortness of breath or wheezing) Qty: 90 0RF carvedilol [Coreg] 12.5 mg Tablet 12.5 mg PO Q12HR Qty: 60 0RF albuterol sulfate [Ventolin HFA] 90 mcg/actuation HFA aerosol inhaler 1 inh inhalation QID PRN (Reason: shortness of breath or wheezing) Qty: 8.5 0RF Continued fluticasone propion-salmeterol [Advair HFA] 115-21 mcg/actuation HFA aerosol inhaler 2 puff INHALATION Q12H pravastatin 40 mg tablet 40 mg PO QHS latanoprost 0.005 % drops 1 drp EACH EYE QPM tamsulosin 0.4 mg capsule 0.4 mg PO HS Qty: 10 0RF Discontinued lisinopril-hydrochlorothiazide 20-25 mg tablet 1 tablet PO DAILY No Action Simbrinza 1-0.2 % drops,suspension 1 drp EACH EYE TID Date of admission: 07/06/24 09:40 Primary Care Provider: Jose De Jesus Covarrubias Admitting Provider: Rambo Hughes Attending physician on admission: Dina Velasquez Condition: Improved Quality VTE Prophylaxis VTE prophylaxis: pharmacologic ordered
[2024-07-08] MEDS: levoFLOXacin TAB 500 MG, levoFLOXacin TAB 250 MG 750 MG PO (09:10)
--- NOTE | 2024-07-08 09:51 | HOMEO2EVAL ---
Evaluation was performed at [facility] Home Oxygen Evaluation RC: Home Oxygen (O2) Evaluation Start: 07/08/24 08:56 Freq: ONCE Status: Active Protocol: RPE Activity Type Activity Date Activity User E-sign Co-sign Detail Recorded Client Recorded Date Recorded By Document 07/08/24 09:25 RES [id number] 07/08/24 09:41 RES Document 07/08/24 09:26 RES [id number] 07/08/24 09:41 RES Document 07/08/24 09:27 RES [id number] 07/08/24 09:49 RES Document 07/08/24 09:28 RES [id number] 07/08/24 09:49 RES Document 07/08/24 09:29 RES [id number] 07/08/24 09:49 RES Document 07/08/24 09:30 RES [id number] 07/08/24 09:49 RES Document 07/08/24 09:31 RES [id number] 07/08/24 09:49 RES Document 07/08/24 09:32 RES [id number] 07/08/24 09:49 RES 07/08/24 07/08/24 07/08/24 09:25 09:26 09:27 Home O2 Evaluation [Oxygen] -Test Phase Resting Exercise Exercise -Oxygen Delivery Room Air Room Air -Oxygen Flow Rate (L/min) -Fraction of Inspired Oxygen (%) 21 21 21 [Pulse Oximetry] -Pulse Oximetry (90-100 %) 96 90 87 L [Pulse Rate] -Pulse Rate (60-100 beats/min) 92 101 H 100 [Evaluation] -Activity Tolerance Good Good Good -Rating of Perceived Dyspnea (PD) +1 Mild, +1 Mild, +1 Mild, Noticeable to Noticeable to Noticeable to the Participant the Participant the Participant but Not to an but Not to an but Not to an Observer Observer Observer -Rate of Perceived Exertion (PE) 9 Very light 9 Very light 9 Very light Query Text:Click the Protocol Button to View the RPE Scale [Exercise] -Ambulation Distance (feet) -Ambulation Distance (meters) [Charges] -Evaluation Charges O2 Evaluation Charge 07/08/24 07/08/24 07/08/24 09:28 09:29 09:30 Home O2 Evaluation [Oxygen] -Test Phase Exercise Exercise Exercise -Oxygen Delivery Nasal Cannula Nasal Cannula Nasal Cannula -Oxygen Flow Rate (L/min) 1 2 2 -Fraction of Inspired Oxygen (%) 24 28 28 [Pulse Oximetry] -Pulse Oximetry (90-100 %) 86 L 90 93 [Pulse Rate] -Pulse Rate (60-100 beats/min) 102 H 104 H 96 [Evaluation] -Activity Tolerance Good Good Good -Rating of Perceived Dyspnea (PD) +1 Mild, +1 Mild, +1 Mild, Noticeable to Noticeable to Noticeable to the Participant the Participant the Participant but Not to an but Not to an but Not to an Observer Observer Observer -Rate of Perceived Exertion (PE) 9 Very light 9 Very light 9 Very light Query Text:Click the Protocol Button to View the RPE Scale [Exercise] -Ambulation Distance (feet) -Ambulation Distance (meters) [Charges] -Evaluation Charges 07/08/24 07/08/24 09:31 09:32 Home O2 Evaluation [Oxygen] -Test Phase Exercise Resting -Oxygen Delivery Nasal Cannula Nasal Cannula -Oxygen Flow Rate (L/min) 2 2 -Fraction of Inspired Oxygen (%) 28 28 [Pulse Oximetry] -Pulse Oximetry (90-100 %) 94 95 [Pulse Rate] -Pulse Rate (60-100 beats/min) 95 92 [Evaluation] -Activity Tolerance Good Good -Rating of Perceived Dyspnea (PD) +1 Mild, +1 Mild, Noticeable to Noticeable to the Participant the Participant but Not to an but Not to an Observer Observer -Rate of Perceived Exertion (PE) 9 Very light 9 Very light Query Text:Click the Protocol Button to View the RPE Scale [Exercise] -Ambulation Distance (feet) 300 -Ambulation Distance (meters) 91.43 [Charges] -Evaluation Charges
--- NOTE | 2024-07-08 11:25 | PC.NURSE ---
Discharge instructions reviewed with patient and patients , verbalized understanding. Patient taken off floor per wheelchair.
--- NOTE | 2024-07-09 09:50 | PC.NURSE ---
Discharge call back completed, states all is going well, using breathing treatments as prescribed, no questions regarding dc instructions
== END 2024-07-08 11:30 | disposition home or self-care (01) | DRG 193 ==
LOC: CHSED 13:40 → CHS2ND 13:52
PROVIDERS: Nurse Practitioner Family; Admitting Provider Internal Medicine; Emergency Provider Family Medicine; PCP Internal Medicine; Visit Provider Nurse Practitioner Acute Care
DX: J18.9 Pneumonia, unspecified organism (principal); J96.21 Acute and chronic respiratory failure with hypoxia; J44.0 Chronic obstructive pulmonary disease with (acute) lower respiratory infection; J44.1 Chronic obstructive pulmonary disease with (acute) exacerbation; J21.9 Acute bronchiolitis, unspecified; N17.9 Acute kidney failure, unspecified; E78.5 Hyperlipidemia, unspecified; I10 Essential (primary) hypertension; Z87.891 Personal history of nicotine dependence
CPT/HCPCS: 36415; 71275; 80053; 83605; 83735; 83880; 84484; 85025; 85610; 87040; 87637; 93005; 94618; 94640; 96361; 96365; 96366; 96372; 96375; 96376; 97161; 97165; 99285; A9270; G0378; J0696; J1650; J1956; J2919; J7040; J7512; Q9967

== ENCOUNTER 2024-09-09 09:45 | Outpatient (CLI) | payer MEDICARE, SELFPAY ==
[2024-09-09] VITALS (10 sets, daily range): PULSE 71–88; O2SAT 88–93
--- NOTE | 2024-09-09 11:36 | SIXMINWLK ---
Six Minute Walk Test PFT: Six Minute Walk Start: 09/09/24 11:24 Freq: Status: Active Protocol: RPE Activity Type Activity Date Activity User E-sign Co-sign Detail Recorded Client Recorded Date Recorded By Document 09/09/24 10:02 RES [id number] 09/09/24 11:29 RES Document 09/09/24 10:03 RES [id number] 09/09/24 11:29 RES Document 09/09/24 10:04 RES [id number] 09/09/24 11:29 RES Document 09/09/24 10:05 RES [id number] 09/09/24 11:36 RES Document 09/09/24 10:06 RES [id number] 09/09/24 11:36 RES Document 09/09/24 10:07 RES [id number] 09/09/24 11:36 RES Document 09/09/24 10:08 RES [id number] 09/09/24 11:36 RES Document 09/09/24 10:09 RES [id number] 09/09/24 11:36 RES Document 09/09/24 10:10 RES [id number] 09/09/24 11:36 RES Document 09/09/24 10:11 RES [id number] 09/09/24 11:36 RES 09/09/24 09/09/24 09/09/24 10:02 10:03 10:04 Six Minute Walk Gender M M M Age 78 80 78 Race White White White Test Phase Resting Exercise Exercise Oxygen Delivery Room Air Room Air Room Air Oxygen Flow Rate (L/min) Fraction of Inspired Oxygen (%) 21 21 21 Pulse Oximetry (90-100 %) 93 90 90 Pulse Rate (60-100 beats/min) 71 77 78 Activity Tolerance Good Good Good Rating of Perceived Dyspnea (PD) +1 Mild, +2 Mild, Some +2 Mild, Some Noticeable to Difficulty, Difficulty, the Participant Noticeable to Noticeable to but Not to an the Observer the Observer Observer Rate of Perceived Exertion (2-3) Light (1) Very Light (2-3) Light Activity Activity Activity Number of Complete Laps (1 Lap = 100 Feet) Total Distance Walked (Feet) Total Distance Walked (Meters) Six Minute Walk Comments 09/09/24 09/09/24 09/09/24 10:05 10:06 10:07 Six Minute Walk Gender M M M Age 78 80 78 Race White White White Test Phase Exercise Exercise Exercise Oxygen Delivery Room Air Nasal Cannula Nasal Cannula Oxygen Flow Rate (L/min) 1 2 Fraction of Inspired Oxygen (%) 21 24 28 Pulse Oximetry (90-100 %) 88 L 88 L 90 Pulse Rate (60-100 beats/min) 81 83 85 Activity Tolerance Good Good Good Rating of Perceived Dyspnea (PD) +2 Mild, Some +2 Mild, Some +2 Mild, Some Difficulty, Difficulty, Difficulty, Noticeable to Noticeable to Noticeable to the Observer the Observer the Observer Rate of Perceived Exertion (2-3) Light (2-3) Light (2-3) Light Activity Activity Activity Number of Complete Laps (1 Lap = 100 Feet) Total Distance Walked (Feet) Total Distance Walked (Meters) Six Minute Walk Comments 09/09/24 09/09/24 09/09/24 10:08 10:09 10:10 Six Minute Walk Gender M M M Age 78 80 80 Race White White White Test Phase Exercise Exercise Exercise Oxygen Delivery Nasal Cannula Nasal Cannula Nasal Cannula Oxygen Flow Rate (L/min) 2 2 2 Fraction of Inspired Oxygen (%) 28 28 28 Pulse Oximetry (90-100 %) 91 90 91 Pulse Rate (60-100 beats/min) 88 86 82 Activity Tolerance Good Good Good Rating of Perceived Dyspnea (PD) +2 Mild, Some +2 Mild, Some +2 Mild, Some Difficulty, Difficulty, Difficulty, Noticeable to Noticeable to Noticeable to the Observer the Observer the Observer Rate of Perceived Exertion (2-3) Light (2-3) Light (2-3) Light Activity Activity Activity Number of Complete Laps (1 Lap = 100 Feet) Total Distance Walked (Feet) Total Distance Walked (Meters) Six Minute Walk Comments 09/09/24 10:11 Six Minute Walk Gender M Age 78 Race White Test Phase Resting Oxygen Delivery Room Air Oxygen Flow Rate (L/min) Fraction of Inspired Oxygen (%) 21 Pulse Oximetry (90-100 %) 90 Pulse Rate (60-100 beats/min) 85 Activity Tolerance Good Rating of Perceived Dyspnea (PD) +2 Mild, Some Difficulty, Noticeable to the Observer Rate of Perceived Exertion (2-3) Light Activity Number of Complete Laps (1 Lap = 100 7 Feet) Total Distance Walked (Feet) 700 Total Distance Walked (Meters) 213.34 Six Minute Walk Comments Patient did take a few 30 second breaks during walk.
== END 2024-09-09 09:46 | disposition home or self-care (01) ==
LOC: CHSIMG 09:45
PROVIDERS: PCP Internal Medicine; Visit Provider Nurse Practitioner Family
DX: J21.8 Acute bronchiolitis due to other specified organisms (principal); J43.9 Emphysema, unspecified; J96.21 Acute and chronic respiratory failure with hypoxia; J18.9 Pneumonia, unspecified organism
CPT/HCPCS: 71250; 94060; 94726; 94729

== ENCOUNTER 2024-10-26 10:47 | Outpatient (CLI) | payer MEDICARE, SELFPAY ==
--- NOTE | ~2024-10-26 | XR_ITS ---
Clinical Indication: Pneumonia PA and lateral views of the chest: Comparison: 06/04/2021 Findings: The lungs are clear, without evidence of focal consolidation or pleural effusion. Cardiome diastinal silhouette is within normal limits. Bones and soft tissues are unremarkable. Impression: Normal chest. Reviewed, dictated and finalized at location . Impression: Normal chest.
--- OUTSIDE RECORDS SUMMARY | 2024-10-26 12:02 | XMS_ITS | Encounter Summary ---
Author Organization [facility] Address [address] [place] [address] Care Team Providers Care Production Generalist Name Role Phone Unavailable Primary Care Provider Unavailabl e Encounter Details Date Type Department Care Team (Late st Contact Info) Description 11/30/2020 Lab Requisition [facility] Care Pathology Lab [address] [place] [address] Marisela Duarte MD [address] [place], [place] [id number] Illness, unspecified Social History Tobacco Use Types Packs/Day Years Used Date Smoking Tobacco: Never Assessed Sex and Gender Information Value Date Recorded Sex Assigned at Not on file Legal Sex Male 8:58 AM CDT Gender Identity Not on file Sexual Orientation Not on file documented as of this encounter Plan of Treatment Not on file documented as of this encounter Procedures Procedure Name Priority Date/Time Associated Diagnosis Comments PATH CONSULT ON REFERRED CASE Routine 11/27/2020 10:46 AM CDT Illness, unspecified documented in this encounter Results * PATH CONSULT ON REFERRED CASE (11/27/2020 10:46 AM CDT) Final Diagnosis PROSTATE, LLB, NEEDLE BIOPSY (OSC: [id number], A; 11/27/2020): - Benign prostatic tissue PROSTATE, LLM, NEEDLE BIOPSY (OSC: [id number], B; 11/27/2020): - Benign prostatic tissue PROSTATE, LLA, NEEDLE BIOPSY (OSC: [id number], C; 11/27/2020): - Benign prostatic tissue PROSTATE, LB, NEEDLE BIOPSY (OSC: [id number], D; 11/27/2020): - Benign prostatic tissue PROSTATE, LM, NEEDLE BIOPSY (OSC: [id number], E; 11/27/2020): - Benign prostatic tissue PROSTATE, LA, NEEDLE BIOPSY (OSC: [id number], F; 11/27/2020): - Benign prostatic tissue PROSTATE, RB, NEEDLE BIOPSY (OSC: [id number], G; 11/27/2020): - Benign prostatic tissue PROSTATE, RM, NEEDLE BIOPSY (OSC: [id number], H; 11/27/2020): - Benign prostatic tissue PROSTATE, RA, NEEDLE BIOPSY (OSC: [id number], I; 11/27/2020): - Benign prostatic tissue PROSTATE, RLB, NEEDLE BIOPSY (OSC: [id number], J; 11/27/2020): - Benign prostatic tissue PROSTATE, RLM, NEEDLE BIOPSY (OSC: [id number], K; 11/27/2020): - Benign prostatic tissue PROSTATE, RLA, NEEDLE BIOPSY (OSC: [id number], L; 11/27/2020): - Benign prostatic tissue 12/01/2020 1:07 PM [facility] Microscopic Description and Comment Microscopic examination substantiates the final diagnosis. 12/01/2020 1:07 PM [facility] Clinical History 75 year old man with PSA 9, PROSTATE VOLUME 59, STAGE NONE GIVEN 12/01/2020 1:07 PM [facility] Materials Received Received are four prepared slides from [facility] labeled [id number] (A1-C1 and A-C composite slide). All material will be returned. 12/01/2020 1:07 PM [facility] Disclaimer The performance characteristics of all immunohistochemical and indirect immunofluorescence stains (if any) cited in this report were determined by the Histopathology Laboratory of [facility]. Some of these tests were developed by our own laboratory and have not been cleared or approved by the US Food and Drug Administration. The FDA does not require this test to go through premarket FDA review. These tests are used for clinical purposes. They should not be regarded as investigational or for research. This laboratory is certified under the Clinical Laboratory Improvement Amendments (CLIA) as qualified to perform high complexity clinical laboratory testing. This case has been personally reviewed and interpreted by the attending (teaching) pathologist. 12/01/2020 1:07 PM CDT [facility] Case Report Surgical Pathology Report Case: [id number] Authorizing Provider: Marisela Duarte MD Collected: 11/27/2020 10:46 AM Ordering Location: [facility] Lab Received: 11/30/2020 10:46 AM Pathologist: Roxana Miller MD Specimen: Slide Consultation 12/01/2020 1:07 PM CDT [facility] Embedded Images 12/01/2020 1:07 PM CDT [facility] Pathology/Cytolo gy SURGICAL PATHOLOGY CONSULTATION AND REPORT ON REFERRED SLIDES PREPARED ELSEWHERE / Unknown 11/27/2020 10:46 AM CDT 11/30/2020 10:46 AM CDT us Marisela Duarte MD LAB - PATHOLOGY/CYTOLOGY ORDERAB LES Final Result Performing Organization Address City/State/[facility] Co de Phone Number [facility] PATHOLOGY LAB [facility] [place] [address], [facility] [phone] documented in this encounter Visit Diagnoses Diagnosis Illness, unspecified documented in this encounter
--- OUTSIDE RECORDS SUMMARY | 2024-10-26 12:02 | XMS_ITS | Clinical Summary ---
Author Organization [facility] [employer] Address [address] [place] [address] Care Team Providers Care Senior Project Coordinator Name Role Phone Unavailable Primary Care Provider Unavailabl e Source Comments [facility] [employer],non-owned Affiliates and Associated Physician Practices is amultiple site organization consisting of ambulatory clinics and hospital sitesin [place], [place], [place] and [place]. This disclosure is being madepursuant to the Care Everywhere program and may not contain all information available regarding this patient. Last updated 18.[facility] [employer] Social History Tobacco Use Types Packs/Day Years Used Date Smoking Tobacco: Never Assessed Sex and Gender Information Value Date Recorded Sex Assigned at Not on file Legal Sex Male 8:58 AM CDT Gender Identity Not on file Sexual Orientation Not on file Plan of Treatment Health Maintenance Due Date Last Done Comments DTAP/TDAP/TD VACCINES (1 - Tdap) 09/27/1962 PNEUMOCOCCAL VACCINE 50+ (1 of 1 - PCV) 09/27/1993 ZOSTER VACCINE (1 of 2) 09/27/1993 Respiratory Syncytial Virus (RSV) Vaccine Pt: or over 60 yrs (1 - 1-dose 75+ series) 09/27/2018 COVID-19 VACCINE ( - 2023-2 5 season) 2024 DEPRESSION SCREENING 07/14/2024 INFLUENZA VACCINE (Season Ended) 2025 HEPATITIS B VACCINE Aged Out No longe r eligible based on patient's age to complete this topic HIB VACCINE Aged Out No longer eligi ble based on patient's age to complete this topic HPV VACCINE Aged Out No longer eligi ble based on patient's age to complete this topic MENINGOCOCCAL (Group B) VACC INE SHARED DECISION-MAKING Aged Out No longer eligibl e based on patient's age to complete this topic MENINGOCOCCAL GROUPS A/C/Y/W VACCINE Aged Out No longer eligible b ased on patient's age to complete this topic
--- OUTSIDE RECORDS SUMMARY | 2024-10-26 12:02 | XMS_ITS | Clinical Summary ---
Author Organization [facility] Address [facility] [address] [place] [address] Care Team Providers Care Correspondence Renew Clerk Name Role Phone Jose De Jesus Covarrubias MD Primary Care Provider [phone] Social History Tobacco Use Types Packs/Day Years Used Date Smoking Tobacco: Never Assessed Sex and Gender Information Value Date Recorded Sex Assigned at Not on file Legal Sex Male 1:18 PM CDT Gender Identity Not on file Sexual Orientation Not on file Plan of Treatment Health Maintenance Due Date Last Done Comments DTaP, Tdap and Td Vaccines ( 1 - Tdap) 09/27/1962 Zoster Vaccines (1 of 2) 09/27/1993 Annual Medicare Wellness Visit 09/27/2008 Pneumococcal Vaccine: 50+ Years (2 of 2 - PPSV23 or PCV20) 03/24/2016 03/24/2015 RSV Immunization or 60+ Years (1 - 1-dose 75+ series) 09/27/2018 COVID-19 Vaccine (3 - 2023-2 5 season) 2024 09/08/2020, 08/18/2020 Meningococcal B Vaccine Aged Out No l onger eligible based on patient's age to complete this topic Meningococcal Vaccine Aged Out No tramaine linda eligible based on patient's age to complete this topic RSV Immunizations Under 20 Months Aged Out No longer eligible b ased on patient's age to complete this topic Insurance MEDICARE [employer]ET[employer] Care Teams Correspondence Renew Clerk Relationship Specialty Start Date End Date Jose De Jesus Covarrubias MD [address] [place] [address] PCP - General INTERNAL MEDICINE 11/02/20
== END 2024-10-26 10:48 | disposition home or self-care (01) ==
LOC: CHSIMG 10:49
PROVIDERS: PCP Internal Medicine; Visit Provider Nurse Practitioner Family
DX: J18.9 Pneumonia, unspecified organism (principal)
CPT/HCPCS: 71046